=== PATIENT | female | born 1970 | race Two or more races ===

== ENCOUNTER 2020-04-02 14:00 | Outpatient (REF) | payer MEDICAID, SELFPAY ==
--- NOTE | ~2020-04-02 | MM_ITS ---
EXAMINATION: MM SCREENING DIGITAL BREAST TOMOSYNTHESIS, BILATERAL CLINICAL INFORMATION: Screening. Asymptomatic. Prior history benign left breast biopsy 2014 (sclerotic fibroadenoma). The lifetime risk of breast cancer based on the Tyrer-Cuzick Model is 14%. COMPARISON: Mammography: 02/04/2015 TECHNIQUE: Digital breast tomosynthesis is performed in both the craniocaudal and mediolateral oblique views along with computer-aided detection (CAD). Synthesized 2D images are generated from the tomosynthesis. Additional bilateral MLO views are provided. FINDINGS: There are scattered areas of fibroglandular density (ACR BI-RADS breast composition Category b). There is biopsy clip marker left breast mid upper outer quadrant with adjacent benign coarse calcification, coalescing since prior imaging 2014. Some scattered punctate benign round calcifications are present in both breasts. There is no architectural abnormality. The axilla and skin contours are unremarkable. The left breast has a 0.6 cm circumscribed nodule anterior upper outer quadrant better appreciated on tomography and not clearly appreciated on prior exam. The right breast has subtle smooth nodularity upper outer quadrant 0.8 x 1.0 cm and central inner right breast 0.9 x 1.1 cm. Again, findings are better appreciated on current study with tomography. Patient will be recalled for additional targeted bilateral breast ultrasound to fully characterize. MM/MM tomosynthesis screening BI IMPRESSION: 1. Left: Subcentimeter smooth nodule anterior upper outer quadrant of uncertain chronicity. 2. Right: Smooth nodularity upper outer quadrant and central inner breast of uncertain chronicity. ASSESSMENT: BI-RADS 0: Incomplete - Need Additional Imaging Evaluation RECOMMENDATION: 1. Bilateral targeted breast ultrasound. 2. Radiology department staff will contact the patient for additional imaging. This patient's information was entered into a reminder system with a target due date for their next mammogram.
== END 2020-04-02 14:01 | disposition home or self-care (01) ==
LOC: HO.MAMMO 14:00
PROVIDERS: PCP General Practice; Visit Provider General Practice
DX: Z12.31 Encounter for screening mammogram for malignant neoplasm of breast (principal)
CPT/HCPCS: 77063; 77067

== ENCOUNTER 2020-04-06 12:41 | Outpatient (REF) | payer MEDICAID, SELFPAY ==
--- NOTE | ~2020-04-06 | US_ITS ---
EXAMINATION: US DIAGNOSTIC ULTRASOUND BREAST, RIGHT US DIAGNOSTIC ULTRASOUND BREAST, LEFT CLINICAL INFORMATION: Recall from screening for 7 cm circumscribed nodule anterior upper outer left breast and smooth nodularity upper outer right breast and central inner right breast. Prior history benign left biopsy 2014 (sclerotic fibroadenoma). TC score 14%. COMPARISON: Mammography 04/02/2020, 03/19/2014, 07/05/2011. TECHNIQUE: Ultrasound left breast is targeted to the area of interest, anterior 1:00 through 5:00 position. Ultrasound right breast is targeted to the 2:00 through 6:00 position and 8:00 to 12:00 position. Grayscale imaging and color Doppler are performed without and with harmonics. FINDINGS: Right: There is an oval mass 9:00 to 10:00 position 10 cm from nipple with smooth margins, hypoechoic, and measuring 0.9 x 0.6 cm. There is no increased or decreased through transmission of sound or associated color flow. This corresponds to finding on recent mammography. The finding is not seen with certainty on prior 2-D exams. It may have been obscured by overlying fibroglandular density and chronicity is unclear. Suspected fibroadenoma. Ultrasound-guided core biopsy is recommended. The nodule central inner right breast noted on mammography is not identified with ultrasound. However, the finding appears chronic and similar nodularity noted in this area on prior mammography 2014 and 2011 consistent with a benign entity. Left: There is incidental cyst 3:00 position measuring 0.7 x 0.4 cm, corresponding to finding on recent mammography. This is anechoic and shows increased through-transmission of sound and no associated color flow. There is no solid mass or architectural abnormality. Results are discussed with the patient at time of visit. US/US breast RT limited IMPRESSION: 1. Right: Oval mass 9:30 o'clock position 10 cm from nipple measuring 0.9 x 0.6 cm, possibly fibroadenoma. Finding not seen with certainty on prior exams. Recommend ultrasound-guided core biopsy. 2. Right: Although the nodularity central inner right breast is not found by ultrasound, the finding is chronic and similar to prior CC views 2014 and 2011 consistent with a benign entity. 3. Left: Small cyst outer left breast corresponding to finding on mammography. ASSESSMENT: BI-RADS 4: Suspicious (subcategory 4A: Low suspicion for malignancy) RECOMMENDATION: Ultrasound-guided core biopsy nodule upper outer right breast. This patient's information was entered into a reminder system with a target due date for their next mammogram.
== END 2020-04-06 12:42 | disposition home or self-care (01) ==
LOC: HO.MAMMO 12:41
PROVIDERS: Visit Provider General Practice
DX: N63.21 Unspecified lump in the left breast, upper outer quadrant (principal); N63.11 Unspecified lump in the right breast, upper outer quadrant
CPT/HCPCS: 76642

== ENCOUNTER → 2020-04-14 13:32 | Outpatient (BNVA) | payer MEDICAID, SELFPAY | PROVIDERS: PCP General Practice; Visit Provider Surgery | DX: R92.8 Other abnormal and inconclusive findings on diagnostic imaging of breast (principal) | CPT/HCPCS: 99202 ==

== ENCOUNTER 2020-04-19 08:06 | Outpatient (REF) | payer MEDICAID, SELFPAY ==
--- NOTE | ~2020-04-19 | MM_ITS ---
EXAMINATION: ULTRASOUND GUIDED CORE BIOPSY BREAST, RIGHT POST PROCEDURE DIGITAL MAMMOGRAM, RIGHT CLINICAL INFORMATION: Oval mass upper outer right breast possibly fibroadenoma. COMPARISON: Mammography 04/02/2020, targeted ultrasound 04/06/2020. FINDINGS: Proper informed consent is obtained from the patient after discussion of the procedure, potential risks and complications, and alternatives. Patient was given an opportunity for questions. The patient appeared to understand. The patient consented to the procedure and signed the consent form. GUIDANCE: Ultrasound-guided; aseptic technique. LESION: Macrolobulated nodule 10:00 position 10 cm from nipple 0.9 cm. APPROACH: Lateral medial. ANESTHESIA: 16 mL 1% lidocaine. DERMATOTOMY: Single skin renata dermatotomy performed. NEEDLE: 14-gauge Achieve core biopsy device with 13.5-gauge co-axial guide needle. CORES: 5. CLIP: HydroMARK; shape: open coil. POST PROCEDURE UNILATERAL DIGITAL MAMMOGRAM: The post biopsy mammogram is performed in separate room using separate digital mammography equipment from the biopsy procedure. CC and ML views are obtained. There are scattered areas of fibroglandular density (breast composition category: b). The clip marker is in position and corresponds to the vicinity of the nodule noted on prior mammography. No gross hematoma. The patient tolerated the procedure well. No immediate complications. Home instructions reviewed with the patient. Final pathology results are pending. MM/MM diagnostic mammo unilat RT IMPRESSION: 1. Status post ultrasound-guided core biopsy right breast. 2. Clip placed: HydroMARK; shape: open coil. 3. Pathology pending. An addendum report will be issued.
== END 2020-04-19 08:07 | disposition home or self-care (01) ==
LOC: HO.MAMMO 08:06
PROVIDERS: Visit Provider Surgery
DX: R92.8 Other abnormal and inconclusive findings on diagnostic imaging of breast (principal)
CPT/HCPCS: 19083; 77065; 88305; A4648

== ENCOUNTER → 2020-04-22 10:00 | Outpatient (BNVA) | payer MEDICAID, SELFPAY | PROVIDERS: PCP General Practice; Visit Provider Surgery | DX: R92.8 Other abnormal and inconclusive findings on diagnostic imaging of breast (principal) | CPT/HCPCS: 99212 ==

== ENCOUNTER 2020-11-02 12:30 | Outpatient (REF) | payer MEDICAID, SELFPAY ==
[2020-11-03 13:58] LABS: H Pylori Breath Test Negative (Negative)
== END 2020-11-02 12:31 | disposition home or self-care (01) ==
LOC: CF 12:30
PROVIDERS: Referring Provider General Practice; Visit Provider Physician Assistant
DX: E66.01 Morbid (severe) obesity due to excess calories (principal); Z68.41 Body mass index [BMI] 40.0-44.9, adult; I10 Essential (primary) hypertension; Z11.0 Encounter for screening for intestinal infectious diseases
CPT/HCPCS: 36415; 83013; 99202; 99211

== ENCOUNTER → 2020-11-29 08:03 | Outpatient (BNVA) | payer MEDICAID, SELFPAY | PROVIDERS: PCP General Practice; Visit Provider Dietitian, Registered ==

== ENCOUNTER → 2020-12-09 08:09 | Outpatient (BNVA) | payer MEDICAID, SELFPAY | PROVIDERS: PCP General Practice; Visit Provider Surgery ==

== ENCOUNTER → 2020-12-13 10:51 | Outpatient (BNVA) | payer MEDICAID, SELFPAY | PROVIDERS: PCP General Practice; Referring Provider Surgery; Visit Provider Dietitian, Registered | DX: E66.01 Morbid (severe) obesity due to excess calories (principal); Z68.41 Body mass index [BMI] 40.0-44.9, adult | CPT/HCPCS: 97802 ==

== ENCOUNTER → 2020-12-30 08:08 | Outpatient (BNVA) | payer MEDICAID, SELFPAY | PROVIDERS: PCP General Practice; Visit Provider Surgery ==

== ENCOUNTER → 2021-01-06 08:08 | Outpatient (BNVA) | payer MEDICAID, SELFPAY | PROVIDERS: PCP General Practice; Visit Provider Surgery ==

== ENCOUNTER → 2021-01-17 08:12 | Outpatient (BNVA) | payer MEDICAID, SELFPAY | PROVIDERS: PCP General Practice; Referring Provider Surgery; Visit Provider Dietitian, Registered ==

== ENCOUNTER 2021-04-04 10:55 | Outpatient (REF) | payer MEDICAID, SELFPAY ==
--- NOTE | ~2021-04-04 | MM_ITS ---
EXAMINATION: MM SCREENING DIGITAL BREAST TOMOSYNTHESIS, BILATERAL CLINICAL INFORMATION: Screening. Asymptomatic. Benign right ultrasound guided biopsy 04/19/2020 (fibroadenoma). The lifetime risk of breast cancer based on the Tyrer-Cuzick Model is 10%. COMPARISON: Mammography: 04/19/2020, 04/02/2020, 02/04/2015 TECHNIQUE: Digital breast tomosynthesis is performed in both the craniocaudal and mediolateral oblique views along with computer-aided detection (CAD). Synthesized 2D images are generated from the tomosynthesis. Additional left MLO view is provided. FINDINGS: There are scattered areas of fibroglandular density (ACR BI-RADS breast composition Category b). Parenchymal pattern is similar to prior study. There is no interval mass or architectural abnormality. Scattered fibronodular densities are stable. There is biopsy clip marker adjacent to coarse calcifications again seen mid upper outer left breast and biopsy clip marker upper outer right breast. Some scattered punctate and round and rim calcifications are again present. The axilla and skin contours are unremarkable. No significant changes. MM/MM tomosynthesis screening BI IMPRESSION: No significant changes from prior exam. ASSESSMENT: BI-RADS 2: Benign RECOMMENDATION: Routine annual mammography screening. This patient's information was entered into a reminder system with a target due date for their next mammogram.
== END 2021-04-04 10:56 | disposition home or self-care (01) ==
LOC: HO.MAMMO 10:55
PROVIDERS: PCP General Practice; Visit Provider General Practice
DX: Z12.31 Encounter for screening mammogram for malignant neoplasm of breast (principal)
CPT/HCPCS: 77063; 77067

== ENCOUNTER 2021-08-07 13:55 | Emergency (ER) | payer MEDICAID, SELFPAY ==
--- NOTE | 2021-08-07 | ECG_ITS ---
Test Reason : chest pain/ swollen legs Blood Pressure : / mmHG Vent. Rate : 071 BPM Atrial Rate : 071 BPM P-R Int : 162 ms QRS Dur : 086 ms QT Int : 382 ms P-R-T Axes : 002 -07 012 degrees QTc Int : 415 ms Normal sinus rhythm Normal ECG When compared with ECG of 19-JUL-2019 19:27, No significant change was found Referred By: Generic ED Physician Electronically Signed By:EYAL RIVERO MD
--- NOTE | ~2021-08-07 | XR_ITS ---
EXAMINATION: XR CHEST CLINICAL INFORMATION: Chest pain, swollen legs. COMPARISON: 07/19/2019 chest radiograph. TECHNIQUE: 2 views of the chest were obtained. FINDINGS: No significant abnormality is noted involving the heart, lungs, mediastinum, bony thorax or soft tissues. XR/XR chest 2V IMPRESSION: No acute cardiopulmonary process.
[2021-08-07 14:39] VITALS: BP 145/86; PULSE 73; RESP 20; TEMP 36.7; O2SAT 98; BMI 44.2
[2021-08-07 15:01] LABS: MANUAL DIFF FLAG NO
[2021-08-07 15:04] LABS: Basophils Percent Auto 0.5 % (0-2); Eosinophils Absolute Auto 0.2 X10*3/uL (0.0-0.4); Hematocrit 36.9 % (37.0-47.0); Hemoglobin 12.1 g/dl (12.0-16.0); Imm Gran Abs Auto 0.01 X10*3/uL (0.00-0.03); Imm Gran Pct Auto 0.2 % (0.0-0.4); Lymphocytes Percent Auto 29.5 % (20-40); Mean Corpuscular HGB Conc 32.8 g/dl (31.0-35.0); Mean Corpuscular Hemoglobin 27.3 pg (27.0-33.0); Mean Corpuscular Volume 83.1 fL (80.0-98.0); Mean Platelet Volume 10.7 fL (9.4-12.3); Monocytes Absolute Auto 0.6 X10*3/uL (0.1-1.2); Monocytes Percent Auto 8.9 % (2-11); Neutrophils Absolute Auto 3.9 x10*3/uL (2.0-8.3); Neutrophils Percent Auto 57.9 % (45-73); Platelet Count 164 X10*3/uL (160-400); Red Blood Count 4.44 X10*6/uL (4.20-5.50); Red Cell Distribution Width 13.4 % (11.0-16.0); White Blood Count 6.7 X10*3/uL (4.8-10.8)
[2021-08-07 15:16] LABS: Anion Gap 10 (12-20); Blood Urea Nitrogen 10 mg/dL (9-16); Calcium 8.2 mg/dL (8.4-10.2); Carbon Dioxide 28 mmol/L (22-29); Chloride 105 mmol/L (96-108); Creatinine Clr Calc Pharmacy 127.2; Estimated Glomerular Filt Rate > 60; Glucose Random 105 mg/dL (60-115); Potassium 3.7 mmol/L (3.3-5.1); Sodium 139 mmol/L (135-145)
[2021-08-07 15:21] LABS: Troponin-I High Sensitivity < 3.5 ng/L (<3.5-17.0)
--- NOTE | 2021-08-07 16:05 | ED_ITS ---
HPI - Chest Pain General Chief Complaint: Chest Pain Stated Complaint: both ankles rash pain Time Seen by Provider: 08/07/21 14:54 Source: patient Mode of arrival: ambulatory Limitations: no limitations History of Present Illness HPI narrative: 51-year-old female with a past medical history of morbid obesity, hyp ertension, generalized anxiety disorder, and major depression presents with bilateral feet and ankle swelling for the last 2 weeks, a rash on her lower medial thinned shins that started yesterday, chest pressure that is intermittent that started 3 days ago. Patient states that her legs have been swollen over last 2 weeks, the rash feels burning and a little itchy. She has not had any recent changes to her medication. States her chest pressure comes and goes, it is in her central chest, does not radiate to her arm or her neck, she is not nauseous. Does endorse feeling sweaty. Never seen Cardiology. States that she becomes more short of breath when she is walking. No recent increase of salt in her diet. No abdominal pain, nausea, vomiting, diarrhea, no urinary tract symptoms, no vaginal discharge or pelvic pain, no fever, no cough, no upper respiratory symptoms Related Data Home Medications Medication Instructions Recorded Confirmed hydrochlorothiazide 25 mg tablet 25 mg PO DAILY 04/14/20 01/06/21 losartan 100 mg tablet 100 mg PO DAILY 04/14/20 01/06/21 hydrochlorothiazide 12.5 mg capsule 12.5 mg PO DAILY 09/23/20 01/06/21 Previous Rx's Medication Instructions Recorded compr.stocking,thigh,short,lrg #12 ea 08/07/21 Allergies Allergy/AdvReac Type Severity Reaction Status Date / Time aspirin [ASPIRIN] Allergy Intermediate SWELLING, Verified 01/06/21 14:27 face swells Penicillins [PENICILLINS] Allergy Mild BLISTERS Verified 01/06/21 14:27 penicillin V Allergy Unknown blisters Verified 01/06/21 14:27 Review of Systems Constitutional: Constitutional: Denies body ache(s), Denies chills, Denies fatigue, Denies fever(s), Denies headache(s), Denies malaise and Denies weakness Eyes: Eyes: Denies diplopia ENT: Denies vertigo, Denies dizziness, Denies otalgia, Denies headache(s), Denies mouth pain, Denies post nasal drip, Denies sinus pain, Denies sinus pressure, Denies sore throat and Denies throat swelling Cardiovascular: Cardiovascular: Reports chest pain, Denies syncope, Reports pedal edema, Reports leg edema, Denies lightheadedness, Denies Loss of Consciousness, Denies radiating jaw, neck or arm pain, Denies palpitations, Denies dyspnea and Reports dyspnea on exertion Respiratory: Respiratory: Denies chest congestion, Denies cough, Denies dyspnea and Reports dyspnea on exertion Gastrointestinal: Gastrointestinal: Denies abdominal pain, Denies hematochezia, Denies constipation, Denies diarrhea, Denies nausea and Denies vomiting Musculoskeletal: Musculoskeletal: Reports no additional musculoskeletal compla ints Integumentary/Breasts: Skin/Breast: Reports rash Neurologic: Denies confusion, Denies vertigo, Denies dizziness, Denies syncope, Denies headache(s) and Denies weakness Psychiatric: Psychiatric: Denies anxiety, Denies confusion and Denies depression Endocrine: Endocrine: Denies fatigue and Denies palpitations Allergic/Immunologic: Allergic/Immunologic: Denies throat swelling [facility] Past Medical History Medical History (Updated 08/07/21 @ 18:07 by KELLY Vences) Hypertension Surgical History History of tubal ligation History of wisdom tooth extraction Family History Family History (Updated 09/23/20 @ 11:12 by Linsey Miramontes) Brother History of prostate cancer Paternal Aunt History of lung cancer Paternal Aunt History of brain cancer Paternal Aunt History of ovarian cancer Paternal Aunt History of lung cancer Paternal Grandmother History of bone cancer Mother Hypertension Emphysema/COPD Father Diabetes Brother No problems noted. Brother No problems noted. Sister No problems noted. Son No problems noted. Son No problems noted. Son No problems noted. Social History Social History (Reviewed 11/02/20 @ 12:48 by Chinedu Miramontes [facility]) Alcohol intake: current Alcohol intake frequency: holidays/special occasions only Patient Tobacco Use Status: Never used Tobacco Advance Directives: No Advance Directives Information Provided: No Physical Exam Vital Signs: Vital Signs: Last Vital Signs Temp 98.0 F 08/07/21 14:39 Pulse 73 08/07/21 14:39 Resp 20 08/07/21 14:39 BP 145/86 H 08/07/21 14:39 Pulse Ox 98 08/07/21 14:39 O2 Del Method 08/07/21 14:39 BMI result Body Mass Index 44.2 Const: General: no acute distress, alert and awake; No confusion Nutritional Appearance: obese morbidly obese Orientation/consciousness: pa tient oriented x3 and No confusion Limitations: no limitations HEENT: Head: Yes normal to inspection, Yes normocephalic and Yes atraumatic Ears: hearing grossly normal bilaterally, external ears normal, TM's normal bilaterally and EAC's normal General nose exam: Normal external nose present Face and sinus: Yes normal facial exam and Yes sinuses nontender Mouth: Normal oral and palatal mucosa present Throat: Yes posterior oropharynx normal Eyes: Conjunctivae: conjunctivae normal Pupils: Equal, round and reactive pupils present EOM: EOMs intact bilaterally Neck: Neck: Yes full ROM, Yes no lymphadenopathy and Yes supple Resp: Effort & Inspection: normal respiratory effort and able to speak in complete sentences Auscultation: clear to auscultation bilaterally, no crackles, no rales, no rhonchi and no wheezes Cardio: Rate: regular rate Rhythm: regular rhythm Heart sounds: S1 normal heart sound present and S2 normal heart sound present GI: Inspection: Yes normal to inspection Palpation (GI): Soft to palpation, nontender, no guarding and not rigid Percussion: Yes normal to percussion Auscultation: normal bowel sounds Skin: Rashes: rashes noted ( bilateral medial shins) Neuro: General: patient oriented x3 and No confusion Cranial nerves: Yes Equal, round and reactive pupils present Extrem: Right lower extremity: full ROM, normal capillary refill and edema Details: pitting and 2+ Left lower extremity: full ROM, normal capillary refill and edema Details: pitting and 2+ Psych: Appearance: grossly normal Affect: normal affect Attitude: cooperative Thought process: Normal thought process present Course Course Course Narrative: 51-year-old female with past medical history of morbid obesity, hypertension, anxiety and depression presents with 3 days of intermittent chest pressure, dyspnea on exertion, and 2 weeks of bilateral lower extremity swelling. Two days ago patient had a red rash appear on her bilateral lower calves. On exam, patient has stable vitals, lungs clear to auscultation, patient is +[address] up her calves. Her rash appears to be hemosiderin in nature, it is non blanchable patient has bilateral lower extremity pulses, calves are not red, warm, or tender Dr Roberts examined patient with me, and did not think this is a vasculitis; he thought most likely venous stasis with hemosiderin. patient had negative labs including initial negative troponin, EKG shows no acute ischemia, chest x-ray shows no pleural effusions or cardiomegaly, BNP is only 35, urine shows she is not spilling protein, shows hematuria. Reevaluation(s) Reevaluation #1: On re-examination, patient's chest pain is completely resolved. Awaiting 3 hour troponin and COVID test Signed patient out to KELLY Sanabria, pending results FINDINGS: No significant abnormality is noted involving the heart, lungs, mediastinum, bony thorax or soft tissues. XR/XR chest 2V IMPRESSION: No acute cardiopulmonary process. MDM - Chest Pain Lab Data Result diagrams: 08/07/21 14:57 08/07/21 14:57 Labs: Lab Results 08/07/21 08/07/21 08/07/21 Range/Units 14:57 14:57 14:57 WBC 6.7 (4.8-10.8) X10*3/uL RBC 4.44 (4.20-5.50) X10*6/uL Hgb 12.1 (12.0-16.0) g/dl Hct 36.9 L (37.0-47.0) % MCV 83.1 (80.0-98.0) fL MCH 27.3 (27.0-33.0) pg MCHC 32.8 (31.0-35.0) g/dl RDW 13.4 (11.0-16.0) % Plt Count 164 (160-400) X10*3/uL MPV 10.7 (9.4-12.3) fL Immature Gran % (Auto) 0.2 (0.0-0.4) % Neut % (Auto) 57.9 (45-73) % Lymph % (Auto) 29.5 (20-40) % [place] % (Auto) 8.9 (2-11) % Eos % (Auto) 3.0 (0-4) % Baso % (Auto) 0.5 (0-2) % Lymph # (Auto) 2.0 (1.2-4.9) X10*3/uL [place] # (Auto) 0.6 (0.1-1.2) X10*3/uL Eos # (Auto) 0.2 (0.0-0.4) X10*3/uL Baso # (Auto) 0.0 (0.0-0.2) X10*3/uL Abs Immat Gran (auto) 0.01 (0.00-0.03) X10*3/uL Absolute Neuts (auto) 3.9 (2.0-8.3) x10*3/uL Absolute Nucleated RBC 0.000 (0.0-0.012) X10*3/uL Nucleated RBC % (auto) 0.0 (0.0-0.2) /100WBC Sodium 139 (135-145) mmol/L Potassium 3.7 (3.3-5.1) mmol/L Chloride 105 (96-108) mmol/L Carbon Dioxide 28 (22-29) mmol/L Anion Gap 10 L (12-20) BUN 10 (9-16) mg/dL Creatinine 0.65 (0.5-1.4) mg/dL Estim Creat Clear Calc 127.2 Estimated GFR > 60 Random Glucose 105 (60-115) mg/dL Calcium 8.2 L (8.4-10.2) mg/dL Troponin I High Sens < 3.5 (<3.5-17.0) ng/L B-Natriuretic Peptide 35 (<100) pg/mL Urine Color Urine Appearance Urine pH (5.0-8.0) Ur Specific [place] (1.005-1.025) Urine Protein (NEG-TRACE) MG/DL Urine Glucose (UA) (NEG) MG/DL Urine Ketones (NEG) MG/DL Urine Blood (NEG) Urine Nitrite (NEG) Ur Leukocyte Esterase (NEG) Urine RBC (0) /HPF Urine WBC (0-4) /HPF Ur Squamous Epith Cells /LPF Urine Bacteria /LPF 08/07/21 08/07/21 Range/Units 16:38 17:39 WBC (4.8-10.8) X10*3/uL RBC (4.20-5.50) X10*6/uL Hgb (12.0-16.0) g/dl Hct (37.0-47.0) % MCV (80.0-98.0) fL MCH (27.0-33.0) pg MCHC (31.0-35.0) g/dl RDW (11.0-16.0) % Plt Count (160-400) X10*3/uL MPV (9.4-12.3) fL Immature Gran % (Auto) (0.0-0.4) % Neut % (Auto) (45-73) % Lymph % (Auto) (20-40) % [place] % (Auto) (2-11) % Eos % (Auto) (0-4) % Baso % (Auto) (0-2) % Lymph # (Auto) (1.2-4.9) X10*3/uL [place] # (Auto) (0.1-1.2) X10*3/uL Eos # (Auto) (0.0-0.4) X10*3/uL Baso # (Auto) (0.0-0.2) X10*3/uL Abs Immat Gran (auto) (0.00-0.03) X10*3/uL Absolute Neuts (auto) (2.0-8.3) x10*3/uL Absolute Nucleated RBC (0.0-0.012) X10*3/uL Nucleated RBC % (auto) (0.0-0.2) /100WBC Sodium (135-145) mmol/L Potassium (3.3-5.1) mmol/L Chloride (96-108) mmol/L Carbon Dioxide (22-29) mmol/L Anion Gap (12-20) BUN (9-16) mg/dL Creatinine (0.5-1.4) mg/dL Estim Creat Clear Calc Estimated GFR Random Glucose (60-115) mg/dL Calcium (8.4-10.2) mg/dL Troponin I High Sens < 3.5 (<3.5-17.0) ng/L B-Natriuretic Peptide (<100) pg/mL Urine Color YELLOW Urine Appearance CLEAR Urine pH 6.5 (5.0-8.0) Ur Specific [place] 1.015 (1.005-1.025) Urine Protein NEG (NEG-TRACE) MG/DL Urine Glucose (UA) NEG (NEG) MG/DL Urine Ketones NEG (NEG) MG/DL Urine Blood 3+ H (NEG) Urine Nitrite NEG (NEG) Ur Leukocyte Esterase NEG (NEG) Urine RBC 1-4 (0) /HPF Urine WBC 1-4 (0-4) /HPF Ur Squamous Epith Cells 1+ /LPF Urine Bacteria 1+ /LPF ECG Data ECG #1: Interpretation: Sinus at a rate of 71, TX interval 162, QRS 86, QTC 415, left-sided axis, no ST depressions or elevations, no T-wave abnormalities Discharge Plan Discharge Clinical Impression: Venous stasis Patient Disposition: Home, Self-Care Instructions: Venous Insufficiency (DC) Additional Instructions: please call your primary care provider for follow-up appointment. Please talk to them if they want to increase her dose of hydrochlorothiazide. Please wear the compression stockings during the day, was will help move the fluid back up to your heart so it could be recirculated Please return to emergency room if you have any new or concerning symptoms such as chest pain, shortness of breath, abdominal pain Prescriptions: New (DME) compr.stocking,thigh,short,lrg Misc See Rx Instructions .Route Qty: 12 0RF Rx Instructions: As directed No Action hydrochlorothiazide 12.5 mg capsule 12.5 mg PO DAILY losartan 100 mg tablet 100 mg PO DAILY hydrochlorothiazide 25 mg tablet 25 mg PO DAILY
[2021-08-07 16:50] LABS: Appearance Urine CLEAR; Color Urine YELLOW; Glucose Urine UA NEG (NEG); Leukocyte Esterase Urine NEG (NEG); Nitrite Urine NEG (NEG); PH 6.5 (5.0-8.0); Specific Gravity - Urine 1.015 (1.005-1.025); UACC Culture Trigger NO; Urine Blood 3+ (NEG); Urine Ketones NEG (NEG); Urine Protein NEG (NEG-TRACE)
[2021-08-07 16:59] LABS: Bacteria Urine 1+ /LPF; Squamous Epithelial Cell Urine 1+ /LPF
[2021-08-07 17:43] LABS: B Type Natriuretic Peptide 35 pg/mL (<100)
[2021-08-07 18:06] LABS: Troponin-I High Sensitivity < 3.5 ng/L (<3.5-17.0)
[2021-08-07 18:12] LABS: COVID-19 Test Negative (Negative)
[2021-08-07 18:32] VITALS: BP 147/88; PULSE 82; RESP 18; O2SAT 99
== END 2021-08-07 18:34 | disposition home or self-care (01) ==
PROVIDERS: Physician Assistant; Emergency Provider Emergency Medicine; PCP General Practice
DX: I87.8 Other specified disorders of veins (principal); R07.89 Other chest pain; R60.0 Localized edema; R21 Rash and other nonspecific skin eruption; R06.02 Shortness of breath; Z79.899 Other long term (current) drug therapy; Z20.822 Contact with and (suspected) exposure to COVID-19
CPT/HCPCS: 36415; 71046; 80048; 81001; 83880; 84484; 85025; 87635; 93005; 99284

== ENCOUNTER → 2021-08-23 15:59 | Outpatient (BNVA) | payer MEDICAID, SELFPAY | PROVIDERS: PCP General Practice; Visit Provider Nurse Practitioner Family | DX: Z12.11 Encounter for screening for malignant neoplasm of colon (principal) | CPT/HCPCS: 99202; 99212 ==

== ENCOUNTER 2022-06-11 15:34 | Outpatient (REF) | payer MEDICAID, SELFPAY ==
--- NOTE | ~2022-06-11 | MM_ITS ---
EXAMINATION: MM SCREENING DIGITAL BREAST TOMOSYNTHESIS, BILATERAL CLINICAL INFORMATION: Screening. Asymptomatic. The lifetime risk of breast cancer based on the Tyrer-Cuzick Model is 10.7%. COMPARISON: Mammography: 04/04/2021 and studies dating back to 01/30/2010 TECHNIQUE: Digital breast tomosynthesis is performed in both the craniocaudal and mediolateral oblique views along with computer-aided detection (CAD). Synthesized 2D images are generated from the tomosynthesis. FINDINGS: The breasts are heterogeneously dense, which may obscure small masses (ACR BI-RADS breast composition Category c). There are no new significant masses, abnormal calcifications, or other abnormalities. Asymmetric density on left mediolateral oblique view is seen to represent superimposition of fibroglandular tissue similar to previous studies dating back to 01/30/2010. MM/MM tomosynthesis screening BI IMPRESSION: No significant change, ASSESSMENT: BI-RADS 1: Negative RECOMMENDATION: Routine annual mammography screening. This patient's information was entered into a reminder system with a target due date for their next mammogram.
== END 2022-06-11 15:35 | disposition home or self-care (01) ==
LOC: HO.MAMMO 15:34
PROVIDERS: PCP General Practice; Visit Provider General Practice
DX: Z12.31 Encounter for screening mammogram for malignant neoplasm of breast (principal)
CPT/HCPCS: 77063; 77067

== ENCOUNTER 2022-07-06 15:39 | Outpatient (REF) | payer MEDICAID, SELFPAY ==
--- NOTE | ~2022-07-06 | XR_ITS ---
EXAMINATION: XR FOOT, RIGHT XR FOOT, LEFT CLINICAL INFORMATION: Rt foot pain x 4 months. No injury, pain mostly in heel. Pain in the lateral aspect of the left foot. COMPARISON: None available. TECHNIQUE: AP, lateral, and oblique views of each foot. FINDINGS: RIGHT FOOT: Moderate sized enthesopathic spurs are present at the Achilles tendon insertion and plantar fascial origin on the calcaneus. No fracture or malalignment. Bone mineralization is normal. Mild soft tissue swelling at the Achilles tendon insertion on the calcaneus. Small os peroneum. Soft tissues otherwise unremarkable. LEFT FOOT: Moderate sized enthesopathic spurs are present at the Achilles tendon insertion and plantar fascial origin on the calcaneus. No fracture or malalignment. Bone mineralization is normal. Small os peroneum. Soft tissues are unremarkable. XR/XR foot RT min 3V IMPRESSION: Moderate-sized enthesopathic spurs at the Achilles tendon insertion and plantar fascial origin on both calcanei. Mild soft tissue swelling at the right Achilles insertion could be due to tendinosis or peritendinitis. No acute osseous findings.
--- NOTE | ~2022-07-06 | XR_ITS ---
EXAMINATION: XR FOOT, RIGHT XR FOOT, LEFT CLINICAL INFORMATION: Rt foot pain x 4 months. No injury, pain mostly in heel. Pain in the lateral aspect of the left foot. COMPARISON: None available. TECHNIQUE: AP, lateral, and oblique views of each foot. FINDINGS: RIGHT FOOT: Moderate sized enthesopathic spurs are present at the Achilles tendon insertion and plantar fascial origin on the calcaneus. No fracture or malalignment. Bone mineralization is normal. Mild soft tissue swelling at the Achilles tendon insertion on the calcaneus. Small os peroneum. Soft tissues otherwise unremarkable. LEFT FOOT: Moderate sized enthesopathic spurs are present at the Achilles tendon insertion and plantar fascial origin on the calcaneus. No fracture or malalignment. Bone mineralization is normal. Small os peroneum. Soft tissues are unremarkable. XR/XR foot LT min 3V IMPRESSION: Moderate-sized enthesopathic spurs at the Achilles tendon insertion and plantar fascial origin on both calcanei. Mild soft tissue swelling at the right Achilles insertion could be due to tendinosis or peritendinitis. No acute osseous findings.
== END 2022-07-06 15:40 | disposition home or self-care (01) ==
LOC: HO.HHCX 15:39
PROVIDERS: Visit Provider General Practice
DX: M79.671 Pain in right foot (principal); M79.672 Pain in left foot
CPT/HCPCS: 73630

== ENCOUNTER 2022-07-19 07:36 | Day surgery (SDC) | payer MEDICAID, SELFPAY ==
--- NOTE | 2022-07-18 09:39 | HO.ANESPROP2 ---
Documented by User: Carmencita Pederson NP 07/18/22 09:39 HPI - Anesthesia Eval Consult details Narrative: 52yo F for Colonoscopy PMFSH Active Problems Active Problems: All Active Problems (Updated 07/13/22 @ 14:04 by Zulma Pryor, RN) Abnormal mammogram of right breast (Acute) Morbid obesity (Acute) HTN (hypertension), benign (Acute) HILDA (generalized anxiety disorder) (Acute) MDD (major depressive disorder), recurrent episode, mild (Acute) Venous stasis (Acute) Past Medical History Medical History (Updated 07/13/22 @ 14:04 by Zulma Pryor, RN) Hypertension Obesity Family History Family History Brother History of prostate cancer Paternal Aunt History of lung cancer Paternal Aunt History of brain cancer Paternal Aunt History of ovarian cancer Paternal Aunt History of lung cancer Paternal Grandmother History of bone cancer Mother Hypertension Emphysema/COPD Father Diabetes Brother No problems noted. Brother No problems noted. Sister No problems noted. Son No problems noted. Son No problems noted. Son No problems noted. Surgical History Surgical History History of tubal ligation History of wisdom tooth extraction Social History Social History Alcohol intake: current Alcohol intake frequency: holidays/special occasions only Patient Tobacco Use Status: Never used Tobacco Use of substances other than those prescribed or required for medical reasons: No Are you DNR?: No Advance Directives: No Advance Directives Information Provided: Yes Recently lost weight without trying: No Nutrition Risks: No Nutritional Risk Meds Allergies Allergy/AdvReac Type Severity Reaction Status Date / Time aspirin [ASPIRIN] Allergy Intermediate SWELLING, Verified 07/13/22 14:05 face swells Penicillins [PENICILLINS] Allergy Mild BLISTERS Verified 07/13/22 14:05 penicillin V Allergy Unknown blisters Verified 07/13/22 14:05 Home Medications Medication Instructions Recorded Confirmed Last Taken Type hydrochlorothiazide 25 mg tablet 25 mg PO DAILY 04/14/20 07/13/22 Unknown History losartan 100 mg tablet 100 mg PO DAILY 04/14/20 07/19/22 07/19/22 06:30 History Exam Exam Date and Time: July 18, [id number] Assessment and Plan Assessment Anesthesia Assessment: Chart Reviewed Documented by User: Sun Petersen MD 07/19/22 08:01 [facility] Past Medical History Medical History (Updated 07/13/22 @ 14:04 by Zulma Pryor RN) Hypertension Obesity Family History Family History Brother History of prostate cancer Paternal Aunt History of lung cancer Paternal Aunt History of brain cancer Paternal Aunt History of ovarian cancer Paternal Aunt History of lung cancer Paternal Grandmother History of bone cancer Mother Hypertension Emphysema/COPD Father Diabetes Brother No problems noted. Brother No problems noted. Sister No problems noted. Son No problems noted. Son No problems noted. Son No problems noted. Family history of problems with anesthesia: No Surgical History Surgical History History of tubal ligation History of wisdom tooth extraction History of Problems with Anesthesia: No Social History Social History Alcohol intake: current Alcohol intake frequency: holidays/special occasions only Patient Tobacco Use Status: Never used Tobacco Use of substances other than those prescribed or required for medical reasons: No Are you DNR?: No Advance Directives: No Advance Directives Information Provided: Yes Recently lost weight without trying: No Nutrition Risks: No Nutritional Risk Meds Allergies Allergy/AdvReac Type Severity Reaction Status Date / Time aspirin [ASPIRIN] Allergy Intermediate SWELLING, Verified 07/13/22 14:05 face swells Penicillins [PENICILLINS] Allergy Mild BLISTERS Verified 07/13/22 14:05 penicillin V Allergy Unknown blisters Verified 07/13/22 14:05 Home Medications Medication Instructions Recorded Confirmed Last Taken Type hydrochlorothiazide 25 mg tablet 25 mg PO DAILY 04/14/20 07/13/22 Unknown History losartan 100 mg tablet 100 mg PO DAILY 04/14/20 07/19/22 07/19/22 06:30 History Exam Airway Mallampati Class: III TM Dist: >3cm Neck ROM: Full Assessment and Plan Assessment Anesthesia Assessment: Anesthesia Plan Discussed Final Anesthetic Review Family History of Problems with Anesthesia: No History of Problems with Anesthesia: No NPO: Yes ASA Class: III Final Preanesthetic Review: No Changes in Pt Med Stat, Meds/Allgs Chart Reviewed, Consent Obtained/Reviewed and Anes Risks/Benef Reviewed Patient Risk: Intermediate Procedure Risk: Low Anesthetic Plan Anesthetic Plan: MAC: Disposition: Standard PACU
[2022-07-19 07:44] VITALS: BMI 45.0
[2022-07-19 07:51] VITALS: BP 123/86; PULSE 91; RESP 16; TEMP 36.1; O2SAT 95
--- NOTE | 2022-07-19 07:59 | MHC.SHP ---
Pre-Procedural Eval Section A Date of Service: 07/19/22 Section B Chief Complaint: Screening Details of Present Illness: Medical History Hypertension Surgical History History of tubal ligation History of wisdom tooth extraction Relevant Social History: None Present Medications: see Short Stay Collaborative assessment Allergies: Allergies Allergy/AdvReac Type Severity Reaction Status Date / Time aspirin [ASPIRIN] Allergy Intermediate SWELLING, Verified 07/13/22 14:05 face swells Penicillins [PENICILLINS] Allergy Mild BLISTERS Verified 07/13/22 14:05 penicillin V Allergy Unknown blisters Verified 07/13/22 14:05 Review of Systems Review of Systems Comment: Ten point ROS negative Exam Exam Comment: Gen appear: No acute distress HEENT: no icterus Chest: No overt resp distress Abd: soft, nontender, nondistended Psych: Stable affect, answering questions appropriately Neuro: A/Ox3 noted to move all extremities spontaneously Ext: no peripheral edema Plan Diagnosis/Plan: Unchanged I have reviewed the history and physical and performed a pertinent physical examination on my patient. No changes have occurred unless specified. Time Spent With Patient Time: Total time managing care of this patient today ____ minutes.
[2022-07-19] MEDS: Lactated Ringers 1,000 ML 100 ML IVCONT (08:03)
[2022-07-19 08:37] VITALS: BP 113/70; PULSE 104; RESP 18; TEMP 37; O2SAT 94
--- NOTE | 2022-07-19 08:37 | P.OP_ITS ---
Operative Note Operative Note Date of Service: 07/19/22 Narrative: Procedure: Colonoscopy Indication: Screening Endoscopist: Emi Lorenzo MD Anesthesia Provider: Dr Sun Petersen Anesthesia type: MAC Instrument: Olympus [id number] Consent: Indication, risks vs benefits, and alternatives were discussed with the patient who gave written informed consent to proceed.EKG, pulse, pulse oximetry and blood pressure were monitored throughout the procedure. Please see anesthesia flowsheet. Procedure: The patient was brought to the procedure room and placed in the left lateral decubitus position. IV medications were administered by the anesthesia provider in attendance. A digital rectal exam was performed which was normal. The distal attachment cap was affixed to the tip of the scope and the colonoscope was then inserted through the anus and advanced through the colon to the cecum at 75 cm,and terminal ileum. Mucosa was carefully examined under high definition white light as the instrument was slowly withdrawn in a retrograde panoramic fashion. Retroflexion was performed in rectum. The procedure was not difficult. There were no immediate obvious complications. The quality of the prep was BBPS: 3+2+3 = adequate Withdrawal time 12 minutes. Limitations: No limitations. Findings: Mucosa: Normal to cecum and terminal ileum. Protruding lesions: * Medium external hemorrhoids without stigmata of recent bleeding. Impression: 1. Normal colon and terminal ileum mucosa 2. External hemorrhoids Recommendations: - Repeat colonoscopy in 10 years for CRC screening
[2022-07-19 08:52] VITALS: BP 135/82; PULSE 92; RESP 18; TEMP 36.1; O2SAT 95
== END 2022-07-19 09:11 | disposition home or self-care (01) ==
PROVIDERS: PCP General Practice; Visit Provider Internal Medicine
PROC: 0DJD8ZZ Inspection of Lower Intestinal Tract, Via Natural or Artificial Opening Endoscopic (ICD-10-PCS; CPT 45378; principal; 2022-07-19 08:30)
DX: Z12.11 Encounter for screening for malignant neoplasm of colon (principal); K64.4 Residual hemorrhoidal skin tags; I10 Essential (primary) hypertension; F33.0 Major depressive disorder, recurrent, mild; F41.1 Generalized anxiety disorder; I87.8 Other specified disorders of veins; E66.01 Morbid (severe) obesity due to excess calories; Z68.42 Body mass index [BMI] 45.0-49.9, adult; Z79.899 Other long term (current) drug therapy; Z88.0 Allergy status to penicillin; Z88.8 Allergy status to other drugs, medicaments and biological substances; Z98.51 Tubal ligation status
CPT/HCPCS: 45378

== ENCOUNTER 2023-01-09 09:48 | Outpatient (REF) | payer MEDICAID, SELFPAY ==
[2023-01-09 12:39] LABS: TSH reflex Free T4 6.03 uIU/mL (0.32-4.0)
[2023-01-09 13:19] LABS: Free T4 (Free Thyroxine) 0.87 ng/dL (0.71-1.85)
[2023-01-10 12:00] LABS: BV Int Neg Control Negative (Negative); BV Int Pos Control Positive (Positive)
== END 2023-01-09 09:49 | disposition home or self-care (01) ==
LOC: HO.HHCL 09:48
PROVIDERS: Visit Provider Advanced Practice Midwife
DX: N91.2 Amenorrhea, unspecified (principal); N89.8 Other specified noninflammatory disorders of vagina
CPT/HCPCS: 36415; 84439; 84443; 87480; 87510; 87660

== ENCOUNTER 2023-03-18 16:04 | Outpatient (REF) | payer MEDICAID, SELFPAY ==
[2023-03-19 05:16] LABS: Estimated Average Glucose 126 mg/dL
== END 2023-03-18 16:05 | disposition home or self-care (01) ==
LOC: HO.HHCL 16:04
PROVIDERS: Visit Provider General Practice
DX: I10 Essential (primary) hypertension (principal)
CPT/HCPCS: 36415; 83036

== ENCOUNTER 2023-04-23 09:58 | Outpatient (AMB) | payer MEDICAID, SELFPAY ==
[2023-04-23 10:20] VITALS: BMI 45.0
--- NOTE | 2023-04-23 10:20 | MHC.OFFVIS ---
Intake Vital Signs 04/23/23 10:20 Height 5 ft 4 in Weight 262 lb BMI 45.0 Intake Visit Reasons: FC- LT ankle fx Intake Note: Ame 53 yr old female presents today for her left ankle fx. Seen with to discuss surgery. Importance of Elevation and ice application addressed with patient, she should be elevating ankle with at least three pillows. We also discussed the reasoning fro no narcotics prior to surgery. patient understands and will be taking ibuprofen and tylenol Allergies aspirin [ASPIRIN] Allergy (Intermediate, Verified 07/13/22 14:05) SWELLING, face swells Penicillins [PENICILLINS] Allergy (Mild, Verified 07/13/22 14:05) BLISTERS penicillin V Allergy (Unknown, Verified 07/13/22 14:05) blisters HPI FC- LT ankle fx HPI Details This is a 53 yo F who tripped and fell in [place] ~5 days ago. She has a CD with her today that shows a fracture/dislocation of her left ankle. This , she tells us, was reduced in [place]. She was splinted and comes in today for follow up. [facility] Medical History (Updated 04/25/23 @ 08:59 by Braxton Bragg MD) Obesity Hypertension Surgical History History of wisdom tooth extraction History of tubal ligation Family History Brother History of prostate cancer Paternal Aunt History of lung cancer Paternal Aunt History of brain cancer Paternal Aunt History of ovarian cancer Paternal Aunt History of lung cancer Paternal Grandmother History of bone cancer Mother Hypertension Emphysema/COPD Father Diabetes Brother No problems noted. Brother No problems noted. Sister No problems noted. Son No problems noted. Son No problems noted. Son No problems noted. Social History Alcohol intake: current Alcohol intake frequency: holidays/special occasions only Patient Tobacco Use Status: Never used Tobacco Physical Exam Vital Signs: BMI result Body Mass Index 45.0 Const General: cooperative, healthy appearing, no acute distress, well developed and alert HEENT Head: Yes normal to inspection, Yes normocephalic and Yes atraumatic Mouth: moist mucous membranes Eyes General: appearance normal, both eyes and all related structures EOM: EOMs intact bilaterally Chest Other: no audible wheezing. Resp Other: No audible wheezing Effort & Inspection: normal respiratory effort Cardio Other: Radial pulse palpable with no rythmic abnormalities Back/Spine/Pelvis Cervical Spine: normal cervical lordosis Skin General skin exam: no rashes or lesions noted Neuro General: no focal motor deficits Extrem Other: sollen left ankle with anterolateral and posteromedial fracture blisters + wrinkle test SILT DP+2 Psych Appearance: grossly normal and well kempt Mental Status: mental status grossly normal Speech and movement: Normal speech and movement present Affect: normal affect Attitude: cooperative Results Reviewed Results Reviewed: Left ankle lateral and posterior malleolar fracture Assessment & Plan Assessment & Plan (1) Closed left ankle fracture: Code(s): S82.892A - Other fracture of left lower leg, initial encounter for closed fracture Plan: This is a 53 yo F with a fracture dislocation (reduced in [place])_ of her left ankle. She is too swollen at this time. I recommend elevation. We will see her in ~5-7 days and hopefully elevation will decrease swelling to allow us to intervene surgically in the next 10 days. Orders: Orders XR ankle LT min 3V 04/23/23 M25.579 - Pain in unspecified ankle and joints of unspecified foot Coding Level of Care Code New Pt Level 4 (71365) Diagnoses Closed left ankle fracture S82.892A
== END 2023-04-23 10:49 | disposition home or self-care (01) ==
LOC: HO.HOS 09:59
PROVIDERS: PCP General Practice; Visit Provider Orthopaedic Surgery
DX: S82.892A Other fracture of left lower leg, initial encounter for closed fracture (principal)
CPT/HCPCS: 99203

== ENCOUNTER 2023-04-23 09:58 | Outpatient (REF) | payer MEDICAID, SELFPAY ==
--- NOTE | ~2023-04-23 | XR_ITS ---
EXAMINATION: XR ANKLE, LEFT CLINICAL INFORMATION: Pain COMPARISON: Left foot radiographs 07/06/2022 TECHNIQUE: AP, lateral, and mortise views of the left ankle. FINDINGS: Overlying splinting material obscures fine osseus detail. Obliquely oriented mildly displaced fracture of the distal fibular diaphysis and mildly displaced posterior malleolus fracture with anterior dislocation of the distal tibia with respect to the talar dome. No definite medial malleolus fracture although as detailed above exam is limited by overlying material, and repeat radiographs could be considered. Widening of the medial clear space suggesting ligamentous injury. Small tibiotalar joint effusion. Overlying soft tissue swelling. Plantar calcaneal spurring and Achilles tendon enthesopathy. XR/XR ankle LT min 3V IMPRESSION: 1. Obliquely oriented mildly displaced fracture of the distal fibular diaphysis and mildly displaced posterior malleolus fracture with anterior dislocation of the distal tibia with respect to the talar dome. No definite medial malleolus fracture although as detailed above exam is limited by overlying material, and repeat radiographs could be considered. 2. Widening of the medial clear space suggesting ligamentous injury. 3. Small tibiotalar joint effusion. Overlying soft tissue swelling.
== END 2023-04-23 09:59 | disposition home or self-care (01) ==
LOC: HO.HOSX 09:58
PROVIDERS: PCP General Practice; Visit Provider Orthopaedic Surgery
DX: S82.892A Other fracture of left lower leg, initial encounter for closed fracture (principal); X58.XXXA Exposure to other specified factors, initial encounter; Y93.9 Activity, unspecified; Y92.9 Unspecified place or not applicable; Y99.9 Unspecified external cause status
CPT/HCPCS: 73610; 99202

== ENCOUNTER 2023-04-29 11:02 | Outpatient (AMB) | payer MEDICAID, SELFPAY ==
--- NOTE | 2023-04-29 11:18 | MHC.OFFVIS ---
Intake Intake Visit Reasons: OV - Left Ankle Fracture - Wound Check Intake Note: Ame is a 53 year old female who presents today for a wound check of her left ankle. On -- while in [place] she was getting out of the pool when she fell on the left ankle. She was seen in their ED, was reduced and placed in a non padded plaster splint. Splint taken down and dressing removed. Blisters on the medial aspect of the ankle seems to have burst while others are intact. She reports significant pain, but it has improved slightly since splint change Allergies aspirin [ASPIRIN] Allergy (Intermediate, Verified 07/13/22 14:05) SWELLING, face swells Penicillins [PENICILLINS] Allergy (Mild, Verified 07/13/22 14:05) BLISTERS penicillin V Allergy (Unknown, Verified 07/13/22 14:05) blisters HPI OV - Left Ankle Fracture - Wound Check HPI Details Ame is a 53 year old female who presents today for a wound check of her left ankle. On -- while in [place] she was getting out of the pool when she fell on the left ankle. She was seen in their ED, was reduced and placed in a non padded plaster splint. Splint taken down and dressing removed. Blisters on the medial aspect of the ankle seems to have burst while others are intact. She reports significant pain, but it has improved slightly since splint change Location Left Ankle [facility] Medical History (Updated 04/25/23 @ 08:59 by Braxton Bragg MD) Obesity Hypertension Surgical History History of wisdom tooth extraction History of tubal ligation Family History Brother History of prostate cancer Paternal Aunt History of lung cancer Paternal Aunt History of brain cancer Paternal Aunt History of ovarian cancer Paternal Aunt History of lung cancer Paternal Grandmother History of bone cancer Mother Hypertension Emphysema/COPD Father Diabetes Brother No problems noted. Brother No problems noted. Sister No problems noted. Son No problems noted. Son No problems noted. Son No problems noted. Social History Alcohol intake: current Alcohol intake frequency: holidays/special occasions only Patient Tobacco Use Status: Never used Tobacco Physical Exam Const General: cooperative, healthy appearing, no acute distress, well developed and alert HEENT Head: Yes normal to inspection, Yes normocephalic and Yes atraumatic Mouth: moist mucous membranes Eyes General: appearance normal, both eyes and all related structures EOM: EOMs intact bilaterally Chest Other: no audible wheezing. Resp Other: No audible wheezing Effort & Inspection: normal respiratory effort Back/Spine/Pelvis Cervical Spine: normal cervical lordosis Skin General skin exam: no rashes or lesions noted Neuro General: no focal motor deficits Extrem Other: Still with multiple medial and lateral fracture blisters over area to be incised. + wrinkle test Psych Appearance: grossly normal and well kempt Mental Status: mental status grossly normal Speech and movement: Normal speech and movement present Affect: normal affect Attitude: cooperative Assessment & Plan Assessment & Plan (1) Closed left ankle fracture: Code(s): S82.892A - Other fracture of left lower leg, initial encounter for closed fracture Plan: 10 days s/p left ankle fracture dislocation. Flew subsequently from [place] and now with extensive swellign and fracture blisters. Still too swollen to operate. Splinted in more neutral position. Elevate above heart. Surgery for next week (Saturday) and follow up Saturday. I recommend ORIF. I discussed the risks benefits and alternatives including but not limited to the risk of pain, infection, stiffness, need for further surgery as well as potential medical complications such as blood clots, pulmonary embolism and cardiac complications. She expressed understanding Coding Level of Care Code Est Pt Level 4 (26006) Diagnoses Closed left ankle fracture S82.892A
== END 2023-05-01 14:43 | disposition home or self-care (01) ==
PROVIDERS: PCP General Practice; Referring Provider General Practice; Visit Provider Orthopaedic Surgery
DX: S82.892A Other fracture of left lower leg, initial encounter for closed fracture (principal)
CPT/HCPCS: 99214

== ENCOUNTER → 2023-04-29 11:02 | Outpatient (BNVA) | payer MEDICAID, SELFPAY | PROVIDERS: PCP General Practice; Visit Provider Orthopaedic Surgery | DX: S82.892D Other fracture of left lower leg, subsequent encounter for closed fracture with routine healing (principal) | CPT/HCPCS: 99212 ==

== ENCOUNTER 2023-05-06 10:05 | Outpatient (AMB) | payer MEDICAID, SELFPAY ==
--- NOTE | 2023-05-06 10:11 | MHC.OFFVIS ---
Intake Vital Signs 05/06/23 10:12 Height 4 in Weight 262 lb BMI 53492.6 Intake Visit Reasons: OV- Left Ankle Fx 04/18/23 - Wound Check Intake Note: Ame is a 53 year old female who presents today for a wound check of her left ankle. While in [facility] 04/18/23 she was getting out of the pool when she fell on the left ankle. She was seen in their ED, was reduced and placed in a non padded plaster splint. Splint taken down and dressing removed. She reports that this splint was quite comfortable, but once splint was removed all of her pain has returned Allergies aspirin [ASPIRIN] Allergy (Intermediate, Verified 07/13/22 14:05) SWELLING, face swells Penicillins [PENICILLINS] Allergy (Mild, Verified 07/13/22 14:05) BLISTERS penicillin V Allergy (Unknown, Verified 07/13/22 14:05) blisters HPI OV- Left Ankle Fx 04/18/23 - Wound Check HPI Details Ame is a 53 year old female who presents today for a wound check of her left ankle. While in [place] on 04/18/23 she was getting out of the pool when she fell on the left ankle. She was seen in their ED, was reduced and placed in a non padded plaster splint. Splint taken down and dressing removed. She reports that this splint was quite comfortable, but once splint was removed all of her pain has returned [facility] Medical History Obesity Hypertension Surgical History History of wisdom tooth extraction History of tubal ligation Family History Brother History of prostate cancer Paternal Aunt History of lung cancer Paternal Aunt History of brain cancer Paternal Aunt History of ovarian cancer Paternal Aunt History of lung cancer Paternal Grandmother History of bone cancer Mother Hypertension Emphysema/COPD Father Diabetes Brother No problems noted. Brother No problems noted. Sister No problems noted. Son No problems noted. Son No problems noted. Son No problems noted. Social History Alcohol intake: current Alcohol intake frequency: holidays/special occasions only Patient Tobacco Use Status: Never used Tobacco Physical Exam Vital Signs: BMI result Body Mass Index 65157.6 Const General: cooperative, healthy appearing, no acute distress, well developed and alert HEENT Head: Yes normal to inspection, Yes normocephalic and Yes atraumatic Mouth: moist mucous membranes Eyes General: appearance normal, both eyes and all related structures EOM: EOMs intact bilaterally Chest Other: no audible wheezing. Resp Other: No audible wheezing Effort & Inspection: normal respiratory effort Cardio Other: Radial pulse palpable with no rythmic abnormalities Back/Spine/Pelvis Cervical Spine: normal cervical lordosis Skin General skin exam: no rashes or lesions noted Neuro General: no focal motor deficits Extrem Other: The swelling is improving but not gone. There are fracture blisters medially and laterally. Her forefoot is swollen. There are wrinkles at the ankle with dorsiflexion but dorsiflexion is very painful. Her calves are soft and not tender Psych Appearance: grossly normal and well kempt Mental Status: mental status grossly normal Speech and movement: Normal speech and movement present Affect: normal affect Attitude: cooperative Results Reviewed Results Reviewed: I personally reviewed relevant radiographs. 1. Obliquely oriented mildly displaced fracture of the distal fibular diaphysis and mildly displaced posterior malleolus fracture with anterior dislocation of the distal tibia with respect to the talar dome. No definite medial malleolus fracture although as detailed above exam is limited by overlying material, and repeat radiographs could be considered. 2. Widening of the medial clear space suggesting ligamentous injury. 3. Small tibiotalar joint effusion. Overlying soft tissue swelling. Assessment & Plan Assessment & Plan (1) Closed left ankle fracture: Code(s): S82.892A - Other fracture of left lower leg, initial encounter for closed fracture Plan: This is a 53-year-old woman who is nearly 3 weeks status post left ankle fracture dislocation. Her swelling has improved but is still fracture blistering are present but many of them have dried. I think the risk of surgery is certainly more elevated than it would be in someone without any skin changes but it is much improved from prior and she is nearly 3 weeks out. I recommend operative fixation of the lateral malleolar fracture. This may include syndesmosis fixation as I suspect there is a deltoid ligament injury. I discussed the risks benefits and alternatives including but not limited to the risk of pain, infection, stiffness, need for further surgery as well as potential medical complications such as blood clots, pulmonary embolism and cardiac complications. She expressed understanding and we will proceed forward accordingly. Coding Level of Care Code Est Pt Level 4 (26217) Diagnoses Closed left ankle fracture S82.892A
[2023-05-06 10:12] VITALS: BMI 11511.6
== END 2023-05-06 10:35 | disposition home or self-care (01) ==
PROVIDERS: PCP General Practice; Visit Provider Orthopaedic Surgery
DX: S82.892A Other fracture of left lower leg, initial encounter for closed fracture (principal)
CPT/HCPCS: 99214

== ENCOUNTER → 2023-05-06 10:05 | Outpatient (BNVA) | payer MEDICAID, SELFPAY | PROVIDERS: PCP General Practice; Visit Provider Orthopaedic Surgery | DX: S82.892A Other fracture of left lower leg, initial encounter for closed fracture (principal); X58.XXXA Exposure to other specified factors, initial encounter; Y93.9 Activity, unspecified; Y92.9 Unspecified place or not applicable; Y99.9 Unspecified external cause status | CPT/HCPCS: 99212 ==

== ENCOUNTER 2023-05-08 12:57 | Day surgery (SDC) | payer MEDICAID, SELFPAY ==
[2023-05-08] VITALS (8 sets, daily range): BP systolic 110–163; BP diastolic 69–97; PULSE 84–104; RESP 12–18; TEMP 36.3–36.8; O2SAT 92–94; BMI 45.0
--- NOTE | ~2023-05-08 | FL_ITS ---
EXAMINATION: XR FLUOROSCOPY WITH IMAGES CLINICAL INFORMATION: History of left ankle fracture. COMPARISON: Prior radiographs, most recently 04/23/2023. TECHNIQUE: Fluoroscopy Supervised By: Dr. Braxton Bragg. Fluoroscopy Time: 0.0. Cumulative Dose: 0.147 mGy. DAP: 0.72780 mGym2. Images: 2. FINDINGS: The submitted images show a fixator plate and fixator screws applied to the distal left fibula. The fracture is in good alignment. A further slightly displaced fracture is noted of the posterior malleolus, in improved alignment. FL/FL guidance in OR IMPRESSION: Intraoperative fluoroscopic guidance is provided during ORIF of a distal left fibular fracture. Please see the patient's Operative Report for full procedural details.
--- NOTE | 2023-05-08 13:15 | HO.ANESPROP2 ---
HPI - Anesthesia Eval Consult details Narrative: ankle fracture for repair PMFSH Active Problems Active Problems: All Active Problems (Updated 04/25/23 @ 08:59 by Braxton Bragg MD) Closed left ankle fracture (Acute) Venous stasis (Acute) MDD (major depressive disorder), recurrent episode, mild (Acute) HILDA (generalized anxiety disorder) (Acute) HTN (hypertension), benign (Acute) Morbid obesity (Acute) Abnormal mammogram of right breast (Acute) Past Medical History Medical History Obesity Hypertension Family History Family History Brother History of prostate cancer Paternal Aunt History of lung cancer Paternal Aunt History of brain cancer Paternal Aunt History of ovarian cancer Paternal Aunt History of lung cancer Paternal Grandmother History of bone cancer Mother Hypertension Emphysema/COPD Father Diabetes Brother No problems noted. Brother No problems noted. Sister No problems noted. Son No problems noted. Son No problems noted. Son No problems noted. Family history of problems with anesthesia: No Surgical History Surgical History History of wisdom tooth extraction History of tubal ligation History of Problems with Anesthesia: No Social History Social History Alcohol intake: current Alcohol intake frequency: holidays/special occasions only Patient Tobacco Use Status: Never used Tobacco Use of substances other than those prescribed or required for medical reasons: No Are you DNR?: No Advance Directives: No Advance Directives Information Provided: Yes Meds Allergies Allergy/AdvReac Type Severity Reaction Status Date / Time aspirin [ASPIRIN] Allergy Intermediate SWELLING, Verified 07/13/22 14:05 face swells Penicillins [PENICILLINS] Allergy Mild BLISTERS Verified 07/13/22 14:05 penicillin V Allergy Unknown blisters Verified 07/13/22 14:05 Home Medications Medication Instructions Recorded Confirmed Last Taken Type hydrochlorothiazide 25 mg tablet 25 mg PO DAILY 04/14/20 05/08/23 Unknown History losartan 100 mg tablet 100 mg PO DAILY 04/14/20 05/08/23 07/19/22 06:30 History bupropion HCl 150 mg 24 hr tablet, 150 mg PO QAM 05/08/23 05/08/23 Unknown History extended release levothyroxine 75 mcg tablet 75 mcg PO QAM 05/08/23 05/08/23 Unknown History paroxetine HCl 20 mg tablet 20 mg PO QAM 05/08/23 05/08/23 Unknown History Exam Height,Weight and Vital Signs: Height 5 ft 4 in Weight 118.841 kg Airway Mallampati Class: II TM Dist: >3cm Neck ROM: Full Heart: rrr Lungs: cta Assessment and Plan Assessment Anesthesia Assessment: Anesthesia Plan Discussed and Chart Reviewed Final Anesthetic Review Family History of Problems with Anesthesia: No History of Problems with Anesthesia: No ASA Class: III (morbid obesity) Final Preanesthetic Review: No Changes in Pt Med Stat, Meds/Allgs Chart Reviewed, Consent Obtained/Reviewed and Anes Risks/Benef Reviewed Patient Risk: Intermediate Procedure Risk: Intermediate Anesthetic Plan Anesthetic Plan: GA and Regional Block Disposition: Standard PACU
[2023-05-08] MEDS: Famotidine/PF 20 MG/2 ML VIAL IVPUSH (13:39)
--- NOTE | 2023-05-08 13:53 | MHC.SHP ---
Pre-Procedural Eval Section A - 24 Hr Update-Section A only Date of Service: 05/08/23 The patient is an INPATIENT: No Changes since office visit: No Cold of Flu in the past 2 weeks, No New Medical Problems, No Changes in Medication and No Patient answered all questions The patient has been examined within 24 hours of the surgical procedure. The History & Physical has been completed within 30 days and I have reviewed it.: Yes Section B - Complete if H&P > 30 days Chief Complaint: Other fracture of left lower leg, initial encounte Allergies: Allergies Allergy/AdvReac Type Severity Reaction Status Date / Time aspirin [ASPIRIN] Allergy Intermediate SWELLING, Verified 07/13/22 14:05 face swells Penicillins [PENICILLINS] Allergy Mild BLISTERS Verified 07/13/22 14:05 penicillin V Allergy Unknown blisters Verified 07/13/22 14:05 Plan I have reviewed the history and physical and performed a pertinent physical examination on my patient. No changes have occurred unless specified. Time Spent With Patient Time: Total time managing care of this patient today ____ minutes.
--- NOTE | 2023-05-08 15:36 | PM.OP ---
Brief Operative Note Date of Service: 05/08/23 Pre-op diagnosis: left ankle fracture Post-op diagnosis: same Procedure: ORIF left distal fibula Implants: [place] fibular locking plate Surgeon: Braxton Bragg MD Anesthesia: GETA and local Was an Checker Product Design used for this Procedure?: Yes Checker Product Design: Sharlene Crocker Estimated blood loss (mL): 20 Tourniquet time (min): 40 IV fluids (mL): 700 Pathology: none sent Condition: stable Disposition: PACU
--- NOTE | 2023-05-10 14:53 | W.PM.OPN ---
Operative Note Operative Note Date of Service: 05/08/23 Narrative: Date of Service: 05/08/23 Pre-op diagnosis: left ankle fracture Post-op diagnosis: same Procedure: ORIF left distal fibula Implants: [place] fibular locking plate Surgeon: Braxton Bragg MD Anesthesia: GETA and local Was an Rehabilitation Services Aide used for this Procedure?: Yes Rehabilitation Services Aide: Sharlene Crocker Estimated blood loss (mL): 20 Tourniquet time (min): 40 IV fluids (mL): 700 Pathology: none sent Condition: stable Disposition: PACU Procedure in detail: Patient was brought to the operating room and placed supine on the operative table. All bony prominences were well padded and a time-out was called to identify proper site proper procedure proper surgeon. IV antibiotics per weight were administered. I began by exsanguinating limb is slightly tourniquet to 300 mm Hg. I then made a standard posterolateral incision over the fibula. The patient had resolving fracture blisters which were unroofed and the area again sterilized with iodine. Full-thickness flaps were taken down to the fibular shaft and distal fibula. The fracture was identified and cleaned with a combination of curette, rongeur and irrigation. A lobster claw was used to provisionally reduce the fracture and a lag screw was placed perpindicular to the fracture from posterior to anterior and distal to proximal. A 6 hole distal fibular locking plate was applied using standard AO technique. Biplanar fluoroscopy was used to confirm hardware position and fracture reduction. Once I was satisfied that both of these were acceptable I irrigated copiously and turned my attention the the syndesmosis. Using an external rotation test the syndesmosis was found to be stable. Therefore all instrumentation was removed and copious irrigation was performed. Nylon suture was used and the patient was placed into a Ralph vacuum dressing and a well-padded posterior splint. Tourniquet was let down and the patient was extubated brought to recovery room in stable condition there were no known complications.
== END 2023-05-08 16:51 | disposition home or self-care (01) ==
LOC: HO.SSS 12:58
PROVIDERS: PCP General Practice; Visit Provider Orthopaedic Surgery
PROC: (CPT 27792; principal; 2023-05-08 15:20)
DX: S82.62XA Displaced fracture of lateral malleolus of left fibula, initial encounter for closed fracture (principal); W01.0XXA Fall on same level from slipping, tripping and stumbling without subsequent striking against object, initial encounter; Y93.89 Activity, other specified; Y92.89 Other specified places as the place of occurrence of the external cause; Y99.9 Unspecified external cause status; I10 Essential (primary) hypertension; E66.9 Obesity, unspecified; Z79.899 Other long term (current) drug therapy; Z88.0 Allergy status to penicillin; Z88.8 Allergy status to other drugs, medicaments and biological substances
CPT/HCPCS: 27792; C1713; J0131; J0665; J0736; J1100; J1170; J2250; J2371; J2405; J2704; J3010

== ENCOUNTER → 2023-05-08 12:57 | Outpatient (BNV) | payer MEDICAID, SELFPAY | PROVIDERS: PCP General Practice; Visit Provider Orthopaedic Surgery | DX: S82.892A Other fracture of left lower leg, initial encounter for closed fracture (principal) | CPT/HCPCS: 27792 ==

== ENCOUNTER 2023-05-13 11:17 | Outpatient (AMB) | payer MEDICAID, SELFPAY ==
--- NOTE | 2023-05-13 11:20 | MHC.OFFVIS ---
Intake Intake Visit Reasons: PO LT Ankle ORIF 05/08/23 NE Intake Note: Ame aranda 53 year old female presents today for a post operative left ankle ORIF on 05/08/23 NE. Patient reports after surgery she was in a lot of pain and felt pressure however she has had improvement. Allergies aspirin [ASPIRIN] Allergy (Intermediate, Verified 05/13/23 11:22) SWELLING, face swells Penicillins [PENICILLINS] Allergy (Mild, Verified 05/13/23 11:22) BLISTERS penicillin V Allergy (Unknown, Verified 05/13/23 11:22) blisters HPI PO LT Ankle ORIF 05/08/23 NE HPI Details 53-year-old female returns to the office today status post left ankle ORIF on May [address] Bragg. She continues to remain nonweightbearing in a posterior splint. States her pain is more tolerable no concerns today. [facility]LY [facility] Medical History Obesity Hypertension Surgical History History of wisdom tooth extraction History of tubal ligation Family History Brother History of prostate cancer Paternal Aunt History of lung cancer Paternal Aunt History of brain cancer Paternal Aunt History of ovarian cancer Paternal Aunt History of lung cancer Paternal Grandmother History of bone cancer Mother Hypertension Emphysema/COPD Father Diabetes Brother No problems noted. Brother No problems noted. Sister No problems noted. Son No problems noted. Son No problems noted. Son No problems noted. Social History Alcohol intake: current Alcohol intake frequency: holidays/special occasions only Patient Tobacco Use Status: Never used Tobacco Review of Systems Const All systems reviewed & are unremarkable except as noted in HPI and below Physical Exam Extrem Other: Left ankle incision is clean dry and intact. Medial-sided blisters are healing. No signs of redness drainage or excessive swelling. Pulses and sensation are intact. Office Procedures Casting/Splints 78981-[id number] Leg splint application Procedure code (CPT) selection complete Assessment & Plan Assessment & Plan (1) Closed left ankle fracture: Code(s): S82.892A - Other fracture of left lower leg, initial encounter for closed fracture Qualifiers: Encounter type: subsequent encounter Fracture healing: with routine healing Qualified Code(s): S82.892D - Other fracture of left lower leg, subsequent encounter for closed fracture with routine healing Plan: Ralph device was removed and a Prevena dressing was applied. She was placed in a new posterior leg splint in neutral position and she will remain nonweightbearing. She will see me back in 1 week with splint off and x-rays and potentials staple removal. Coding Level of Care Code Global (49082) Diagnoses Closed fracture of left ankle with routine healing, subsequent encounter S82.892D Encounter type: subsequent encounter Fracture healing: with routine healing CPT Codes Splint - CPT: 39324-Tmpaf Leg splint application ([id number])
== END 2023-05-13 12:03 | disposition home or self-care (01) ==
PROVIDERS: PCP General Practice; Visit Provider Physician Assistant
DX: S82.892D Other fracture of left lower leg, subsequent encounter for closed fracture with routine healing (principal)
CPT/HCPCS: 29515; 99024

== ENCOUNTER → 2023-05-13 11:17 | Outpatient (BNVA) | payer MEDICAID, SELFPAY | PROVIDERS: PCP General Practice; Visit Provider Physician Assistant | DX: S82.892D Other fracture of left lower leg, subsequent encounter for closed fracture with routine healing (principal); Z98.890 Other specified postprocedural states; X58.XXXD Exposure to other specified factors, subsequent encounter | CPT/HCPCS: 29515; 99212 ==

== ENCOUNTER 2023-05-23 12:23 | Outpatient (AMB) | payer MEDICAID, SELFPAY ==
--- NOTE | 2023-05-23 12:38 | A.OFFVIS_ITS ---
Intake Intake Visit Reasons: PO LT Ankle ORIF 05/08/23 NE Intake Note: Ame a 53 year old female presents today for a post operative left ankle ORIF on 05/08/23 NE. Patient reports she is doing well, states some improvement. Her current pain level is 6-7 out of 10. Allergies aspirin [ASPIRIN] Allergy (Intermediate, Verified 05/23/23 12:41) SWELLING, face swells Penicillins [PENICILLINS] Allergy (Mild, Verified 05/23/23 12:41) BLISTERS penicillin V Allergy (Unknown, Verified 05/23/23 12:41) blisters HPI PO LT Ankle ORIF 05/08/23 NE HPI Details 53-year-old female who returns to the [facility] today for post-op left ankle ORIF, 05/08/[address] Bragg. She states she has improvement in her pain however she does c/o pain in her ankle and rates the pain as about 6 on the scale of 0-10. She is doing well otherwise and has no other concerns today. [facility] Medical History Obesity Hypertension Surgical History History of wisdom tooth extraction History of tubal ligation Family History Brother History of prostate cancer Paternal Aunt History of lung cancer Paternal Aunt History of brain cancer Paternal Aunt History of ovarian cancer Paternal Aunt History of lung cancer Paternal Grandmother History of bone cancer Mother Hypertension Emphysema/COPD Father Diabetes Brother No problems noted. Brother No problems noted. Sister No problems noted. Son No problems noted. Son No problems noted. Son No problems noted. Social History Alcohol intake: current Alcohol intake frequency: holidays/special occasions only Patient Tobacco Use Status: Never used Tobacco Review of Systems Const All systems reviewed & are unremarkable except as noted in HPI and below Physical Exam Extrem Other: Left ankle: Normal to inspection. No erythema or drainage. Lateral incision is clean, dry and intact. There is an area inferior to the incision that has some moisture to it. She also has some swelling at the dorsum of foot. NVI. Office Procedures Casting/Splints 59135-[id number] Leg Cast Application Procedure code (CPT) selection complete Results Reviewed Results Reviewed: Xrays were obtained in the office today and personally reviewed by me of the left nakle show intact hardware with stable fracture pattern Assessment & Plan Assessment & Plan (1) Closed left ankle fracture: Code(s): S82.892A - Other fracture of left lower leg, initial encounter for closed fracture Qualifiers: Encounter type: subsequent encounter Fracture healing: with routine healing Qualified Code(s): S82.892D - Other fracture of left lower leg, subsequent encounter for closed fracture with routine healing Plan Sutures removed today, steri strips applied. She was placed in a short leg cast and will remain non weight bearing. I stressed the importance to continue with elevation. She will see me back in 1 week for cast off and wound check, sooner if needed. Orders: Orders XR ankle LT min 3V Today M25.572 - Pain in left ankle and joints of left foot Patient Instructions: Scribed for Concepcion Ireland PA-C, by Martín Reyes special forces medical sergeant, on 05/23/2023 at 12:45 PM EST. I, Concepcion Ireland PA-C, have personally reviewed and agree with the information entered by the scribe. Coding Level of Care Code Global (34159) Diagnoses Closed fracture of left ankle with routine healing, subsequent encounter S82.892D Encounter type: subsequent encounter Fracture healing: with routine healing CPT Codes Casting - CPT: 67310-Mofsr Leg Cast Application ([id number])
== END 2023-05-23 14:23 | disposition home or self-care (01) ==
LOC: HO.HOS 12:23
PROVIDERS: PCP General Practice; Visit Provider Physician Assistant
DX: S82.892D Other fracture of left lower leg, subsequent encounter for closed fracture with routine healing (principal)
CPT/HCPCS: 29405; 99024

== ENCOUNTER 2023-05-23 12:23 | Outpatient (REF) | payer MEDICAID, SELFPAY ==
--- NOTE | ~2023-05-23 | XR_ITS ---
EXAMINATION: XR ANKLE, LEFT CLINICAL INFORMATION: Pain. COMPARISON: Prior radiographs, most recently 04/23/2023. TECHNIQUE: AP, lateral, and mortise views of the left ankle. FINDINGS: There is mild bony demineralization. The ankle mortise is intact. There is stable alignment of an oblique fracture of the distal left fibula, with intact orthopedic fixator plate and fixator screws. No hardware failure or loosening noted. There is a small linear calcification and mild periosteal reaction adjacent to the medial malleolus, which may represent a minimal avulsion. No left ankle joint effusion is seen. Boehler's angle is normal. There are small posterior and moderate plantar calcaneal spurs. There is mild soft tissue swelling adjacent to the medial malleolus. No soft tissue gas or foreign body is seen. XR/XR ankle LT min 3V IMPRESSION: 1. There is stable mild displacement of an oblique fracture of the distal left fibula status-post ORIF. No hardware failure or loosening is seen. 2. A minimal cortical avulsion is questioned of the medial malleolus.
== END 2023-05-23 12:24 | disposition home or self-care (01) ==
LOC: HO.HOSX 12:23
PROVIDERS: PCP General Practice; Visit Provider Physician Assistant
DX: M25.572 Pain in left ankle and joints of left foot (principal); S82.892D Other fracture of left lower leg, subsequent encounter for closed fracture with routine healing; X58.XXXD Exposure to other specified factors, subsequent encounter
CPT/HCPCS: 29405; 73610; 99212

== ENCOUNTER 2023-05-30 12:59 | Outpatient (AMB) | payer MEDICAID, SELFPAY ==
--- NOTE | 2023-05-30 13:14 | A.OFFVIS_ITS ---
Intake Intake Visit Reasons: PO LT Ankle ORIF 05/08/23 NE Intake Note: Ame a 53 year old female who presents today for a post operative left ankle ORIF on 05/08/23 NE. Patient reports she is having burning sensation on her lateral aspect of foot and pain in her middle toe. Allergies aspirin [ASPIRIN] Allergy (Intermediate, Verified 05/23/23 12:41) SWELLING, face swells Penicillins [PENICILLINS] Allergy (Mild, Verified 05/23/23 12:41) BLISTERS penicillin V Allergy (Unknown, Verified 05/23/23 12:41) blisters HPI PO LT Ankle ORIF 05/08/23 NE HPI Details 53-year-old female who returns to the [facility] today for post-op left ankle ORIF, 05/08/[address] Bragg. She reports she has a burning sensation at the lateral aspect of her foot as well as pain in her middle toe. She is doing well otherwise and has no other concerns today. [facility] Medical History Obesity Hypertension Surgical History History of wisdom tooth extraction History of tubal ligation Family History Brother History of prostate cancer Paternal Aunt History of lung cancer Paternal Aunt History of brain cancer Paternal Aunt History of ovarian cancer Paternal Aunt History of lung cancer Paternal Grandmother History of bone cancer Mother Hypertension Emphysema/COPD Father Diabetes Brother No problems noted. Brother No problems noted. Sister No problems noted. Son No problems noted. Son No problems noted. Son No problems noted. Social History Alcohol intake: current Alcohol intake frequency: holidays/special occasions only Patient Tobacco Use Status: Never used Tobacco Review of Systems Const All systems reviewed & are unremarkable except as noted in HPI and below Physical Exam Extrem Other: Left ankle: Incision clean, dry and intact. No open wound or abrasion. No blisters. NVI. Office Procedures Casting/Splints [id number]-[id number] Leg Cast Application Procedure code (CPT) selection complete Assessment & Plan Assessment & Plan (1) Closed left ankle fracture: Code(s): S82.892A - Other fracture of left lower leg, initial encounter for closed fracture Qualifiers: Encounter type: subsequent encounter Fracture healing: with routine healing Qualified Code(s): S82.892D - Other fracture of left lower leg, subsequent encounter for closed fracture with routine healing Plan New cast was applied today, she will continue non weight bearing. She will continue with elevation and see me back in 3 weeks with cast off and new x-rays, sooner if needed. Patient Instructions: Scribed for Concepcion Ireland PA-C, by Martín Reyes medical doctor, on 05/30/2023 at 1:30 PM EST. I, Concepcion Ireland PA-C, have personally reviewed and agree with the information entered by the scribe. Coding Level of Care Code Global (89522) Diagnoses Closed fracture of left ankle with routine healing, subsequent encounter S82.892D Encounter type: subsequent encounter Fracture healing: with routine healing CPT Codes Casting - CPT: 07570-Mzeyk Leg Cast Application ([id number])
== END 2023-05-30 14:01 | disposition home or self-care (01) ==
PROVIDERS: PCP General Practice; Visit Provider Physician Assistant
DX: S82.892D Other fracture of left lower leg, subsequent encounter for closed fracture with routine healing (principal); W01.0XXD Fall on same level from slipping, tripping and stumbling without subsequent striking against object, subsequent encounter
CPT/HCPCS: 29405; 99024

== ENCOUNTER → 2023-05-30 12:59 | Outpatient (BNVA) | payer MEDICAID, SELFPAY | PROVIDERS: PCP General Practice; Visit Provider Physician Assistant | DX: S82.892D Other fracture of left lower leg, subsequent encounter for closed fracture with routine healing (principal) | CPT/HCPCS: 29405; 99212 ==

== ENCOUNTER 2023-06-17 15:25 | Outpatient (REF) | payer MEDICAID, SELFPAY ==
--- NOTE | ~2023-06-17 | MM_ITS ---
EXAMINATION: MM SCREENING DIGITAL BREAST TOMOSYNTHESIS, BILATERAL CLINICAL INFORMATION: Screening. Asymptomatic. COMPARISON: Mammography: This study is compared with prior exams dating back to 2015. TECHNIQUE: Digital breast tomosynthesis is performed in both the craniocaudal and mediolateral oblique views along with computer-aided detection (CAD). Synthesized 2D images are generated from the tomosynthesis. FINDINGS: There are scattered areas of fibroglandular density (ACR BI-RADS breast composition Category b). There are no significant masses, abnormal calcifications, or other abnormalities. There is a tissue marker in each breast from prior benign percutaneous biopsies. There are few, bilateral, benign calcifications in each breast. MM/MM tomosynthesis screening BI IMPRESSION: No mammographic evidence of malignancy. ASSESSMENT: BI-RADS BI-RADS 2 - Benign Findings RECOMMENDATION: Routine annual mammography screening. 1 year F/U This examination should not preclude the clinical evaluation of a suspicious palpable abnormality. This patient's information was entered into a reminder system with a target due date for their next mammogram.
== END 2023-06-17 15:26 | disposition home or self-care (01) ==
LOC: HO.MAMMO 15:25
PROVIDERS: PCP General Practice; Visit Provider General Practice
DX: Z12.31 Encounter for screening mammogram for malignant neoplasm of breast (principal)
CPT/HCPCS: 77063; 77067

== ENCOUNTER → 2023-06-17 15:45 | Outpatient (BNV) | payer MEDICAID, SELFPAY | PROVIDERS: PCP General Practice; Visit Provider Radiology Diagnostic Radiology | DX: Z12.31 Encounter for screening mammogram for malignant neoplasm of breast (principal) | CPT/HCPCS: 77063; 77067 ==

== ENCOUNTER 2023-06-27 09:21 | Outpatient (REF) | payer MEDICAID, SELFPAY ==
--- NOTE | ~2023-06-27 | XR_ITS ---
EXAMINATION: XR ANKLE, LEFT CLINICAL INFORMATION: Pain COMPARISON: 05/23/2023 TECHNIQUE: AP, lateral, and mortise views of the left ankle. FINDINGS: Status post distal left fibular ORIF without evidence of hardware complication. Unchanged alignment of distal fibular fracture. Periosteal reaction versus ossific density from a small avulsion injury along the medial malleolus, similar to prior study. Ankle mortise is preserved. Plantar calcaneal spurs. XR/XR ankle LT min 3V IMPRESSION: Status post distal left fibular ORIF without evidence of hardware complication. Unchanged alignment of distal fibular fracture. Periosteal reaction versus ossific density from a small avulsion injury along the medial malleolus, similar to prior study.
== END 2023-06-27 09:22 | disposition home or self-care (01) ==
LOC: HO.HOSX 09:21
PROVIDERS: Visit Provider Physician Assistant
DX: S82.892D Other fracture of left lower leg, subsequent encounter for closed fracture with routine healing (principal)
CPT/HCPCS: 73610; 99212

== ENCOUNTER 2023-06-27 12:37 | Outpatient (AMB) | payer MEDICAID, SELFPAY ==
--- NOTE | 2023-06-27 13:11 | MHC.OFFVIS ---
Intake Visit Reasons: ov-PO LT Ankle ORIF 05/08/23 NE Allergies aspirin [ASPIRIN] Allergy (Intermediate, Verified 05/23/23 12:41) SWELLING, face swells Penicillins [PENICILLINS] Allergy (Mild, Verified 05/23/23 12:41) BLISTERS penicillin V Allergy (Unknown, Verified 05/23/23 12:41) blisters HPI HPI ov-PO LT Ankle ORIF 05/08/23 NE: Details: 53-year-old female who returns to the office today for post-op left ankle ORIF, 05/08/[address] Bragg. FOR[facility]LY [facility] Medical History Obesity Hypertension Surgical History History of wisdom tooth extraction History of tubal ligation Family History Brother History of prostate cancer Paternal Aunt History of lung cancer Paternal Aunt History of brain cancer Paternal Aunt History of ovarian cancer Paternal Aunt History of lung cancer Paternal Grandmother History of bone cancer Mother Hypertension Emphysema/COPD Father Diabetes Brother No problems noted. Brother No problems noted. Sister No problems noted. Son No problems noted. Son No problems noted. Son No problems noted. Social History Alcohol intake: current Alcohol intake frequency: holidays/special occasions only Patient Tobacco Use Status: Never used Tobacco Review of Systems Const All systems reviewed & are unremarkable except as noted in HPI and below Physical Exam Extrem Other: Left ankle: Incision well healed. Moderate swelling over the distal part of the foot. No open wound or abrasion. No blisters. NVI. Results Reviewed Results Reviewed: Xrays were obtained in the office today and personally reviewed by me of the left ankle show intact hardware with stable fracture pattern Assessment & Plan Assessment & Plan (1) Closed left ankle fracture: Code(s): S82.892A - Other fracture of left lower leg, initial encounter for closed fracture Category: Medical Qualifiers: Encounter type: subsequent encounter Fracture healing: with routine healing Qualified Code(s): S82.892D - Other fracture of left lower leg, subsequent encounter for closed fracture with routine healing Plan She was transitioned to a tall walking boot which he will begin weight bearing as tolerated. I placed an order for physical therapy to work on ROM, gait training, gentle strengthening and proprioceptive training. I would like to see her back in 6 weeks with x-rays, sooner if needed. Orders: Orders PT Evaluation and Treatment Today S82.892D - Other fracture of left lower leg, subsequent encounter for closed fracture with routine healing XR ankle LT min 3V Today M25.572 - Pain in left ankle and joints of left foot Patient Instructions: Scribed for Concepcion Ireland PA-C, by Martín Reyes medical numerical control operator, on 06/27/2023 at 12:45 PM EST. Gayle, Concepcion Ireland PA-C, have personally reviewed and agree with the information entered by the scribe. Coding Level of Care Code Global (06254) Diagnoses Closed fracture of left ankle with routine healing, subsequent encounter S82.892D Encounter type: subsequent encounter Fracture healing: with routine healing
== END 2023-06-27 13:39 | disposition home or self-care (01) ==
PROVIDERS: PCP General Practice; Visit Provider Physician Assistant
DX: S82.892D Other fracture of left lower leg, subsequent encounter for closed fracture with routine healing (principal)
CPT/HCPCS: 99024

== ENCOUNTER 2023-07-29 14:06 | Outpatient (REF) | payer MEDICAID, SELFPAY ==
[2023-07-29 16:29] LABS: Alanine Aminotransferase 80 U/L (0-31); Albumin Level 3.7 g/dL (3.5-5.0); Alkaline Phosphatase 93 U/L (39-117); Anion Gap 10 (12-20); Aspartate Amino Transferase 60 U/L (5-31); Bilirubin Total 0.3 mg/dL (0.0-1.0); Blood Urea Nitrogen 11 mg/dL (9-16); Calcium 9.1 mg/dL (8.4-10.2); Carbon Dioxide 28 mmol/L (22-29); Chloride 106 mmol/L (96-108); Cholesterol 137 mg/dL (<200); Estimated Glomerular Filt Rate > 60; Glucose Random 117 mg/dL (60-115); HDL Cholesterol 46 mg/dL (>40); LDL Cholesterol Calculated 65 mg/dL (<100); Potassium 3.5 mmol/L (3.3-5.1); Sodium 140 mmol/L (135-145); Total Protein 7.5 g/dL (6.5-8.0); Triglycerides 131 mg/dL (<150)
[2023-07-29 16:34] LABS: TSH reflex Free T4 7.35 uIU/mL (0.32-4.0)
[2023-07-29 17:11] LABS: Free T4 (Free Thyroxine) 0.83 ng/dL (0.71-1.85)
== END 2023-07-29 14:07 | disposition home or self-care (01) ==
LOC: HO.HHCL 14:06
PROVIDERS: Visit Provider General Practice
DX: I10 Essential (primary) hypertension (principal)
CPT/HCPCS: 36415; 80053; 80061; 84439; 84443

== ENCOUNTER 2023-08-08 06:46 | Outpatient (REF) | payer MEDICAID, SELFPAY ==
--- NOTE | ~2023-08-08 | XR_ITS ---
EXAMINATION: XR ANKLE, LEFT CLINICAL INFORMATION: Pain in left ankle and joints of left foot. COMPARISON: June 27, 2023, May 23, 2023, April 23, 2023. TECHNIQUE: AP, lateral, and mortise views of the left ankle. FINDINGS: Status post ORIF distal fibula. Hardware appears intact. Similar alignment of previously noted distal fibular fracture. Redemonstration of mild periosteal reaction versus ossific density from small avulsion injury along the medial malleolus. Plantar calcaneal spurs. XR/XR ankle LT min 3V IMPRESSION: 1. Status post ORIF distal fibula. Hardware appears intact. Similar alignment of previously noted distal fibular fracture. 2. Redemonstration of mild periosteal reaction versus ossific density from small avulsion injury along the medial malleolus.
== END 2023-08-08 06:47 | disposition home or self-care (01) ==
LOC: HO.HOSX 06:46
PROVIDERS: Visit Provider Physician Assistant
DX: M25.572 Pain in left ankle and joints of left foot (principal); S82.892D Other fracture of left lower leg, subsequent encounter for closed fracture with routine healing; X58.XXXD Exposure to other specified factors, subsequent encounter
CPT/HCPCS: 73610; 99212

== ENCOUNTER 2023-08-08 13:06 | Outpatient (AMB) | payer MEDICAID, SELFPAY ==
--- NOTE | 2023-08-08 13:25 | A.OFFVIS_ITS ---
Intake Visit Reasons: PO- ORIF left ankle 05/08/23 w xry Intake Note: Ame a 53 year old female who presents today for a post operative left ankle ORIF on 05/08/23 NE. Patient reports she is doing well, states having discomfort that feels like a burning sensation at the lateral and medical aspect of ankle. She started working with PT last week. She continues to wear boot as instructed. Allergies aspirin [ASPIRIN] Allergy (Intermediate, Verified 08/08/23 13:30) SWELLING, face swells Penicillins [PENICILLINS] Allergy (Mild, Verified 08/08/23 13:30) BLISTERS penicillin V Allergy (Unknown, Verified 08/08/23 13:30) blisters Medication List - Last Reconciled 08/08/23 by Concepcion Ireland PA-C bupropion HCl XL 150 mg PO QAM compr.stocking,thigh,short,lrg As directed hydrochlorothiazide 25 mg PO DAILY levothyroxine 75 mcg PO QAM losartan 100 mg PO DAILY paroxetine HCl 20 mg PO QAM HPI HPI PO- ORIF left ankle 05/08/23 w xry: Details: 53-year-old female who returns to the office today for post-op left ankle ORIF, 05/08/23. She reports she has discomfort and a burning sensation at the lateral aspect and medial aspect of her ankle. She has started with physical therapy last week. She continues to wear the boot as instructed. She is doing well overall and has no other concerns today. [facility]LY [facility], [facility] Medical History Obesity Hypertension Surgical History (Reviewed 08/08/23 @ 13:30 by Rebeka Rooney [facility]) History of wisdom tooth extraction History of tubal ligation Family History Brother History of prostate cancer Paternal Aunt History of lung cancer Paternal Aunt History of brain cancer Paternal Aunt History of ovarian cancer Paternal Aunt History of lung cancer Paternal Grandmother History of bone cancer Mother Hypertension Emphysema/COPD Father Diabetes Brother No problems noted. Brother No problems noted. Sister No problems noted. Son No problems noted. Son No problems noted. Son No problems noted. Social History Alcohol intake: current Alcohol intake frequency: holidays/special occasions only Patient Tobacco Use Status: Never used Tobacco Review of Systems Const All systems reviewed & are unremarkable except as noted in HPI and below Physical Exam Extrem Other: Left ankle: Incision well healed. Moderate swelling over the distal part of the foot. No open wound or abrasion. No blisters. NVI. Results Reviewed Results Reviewed: Xrays were obtained in the office today and personally reviewed by me of the left ankle show intact hardware with stable fracture pattern Assessment & Plan Assessment & Plan (1) Closed left ankle fracture: Code(s): S82.892A - Other fracture of left lower leg, initial encounter for closed fracture Category: Medical Qualifiers: Encounter type: subsequent encounter Fracture healing: with routine h ealing Qualified Code(s): S82.892D - Other fracture of left lower leg, subsequent encounter for closed fracture with routine healing Plan She will continue with physical therapy specifically to work on aggressive ROM and strengthening. She was also given a lace up ankle brace in the office today which she will transition to and she will follow-up to our office in 6 weeks for reevaluation sooner if needed. Orders: Orders XR ankle LT min 3V Today M25.572 - Pain in left ankle and joints of left foot Patient Instructions: Scribed for Concepcion Ireland PA-C, by Martín Reyes medical office receptionist assistant, on 08/08/2023 at 1:00 PM EST.? I, Concepcion Ireland PA-C, have personally reviewed and agree with the information entered by the scribe. Coding Level of Care Code Est Pt Level 3 (75181) Diagnoses Closed fracture of left ankle with routine healing, subsequent encounter S82.892D Encounter type: subsequent encounter Fracture healing: with routine healing
== END 2023-08-08 14:26 | disposition home or self-care (01) ==
PROVIDERS: PCP General Practice; Visit Provider Physician Assistant
DX: S82.892D Other fracture of left lower leg, subsequent encounter for closed fracture with routine healing (principal)
CPT/HCPCS: 99213

== ENCOUNTER 2023-09-25 09:42 | Outpatient (REF) | payer MEDICAID, SELFPAY ==
--- NOTE | ~2023-09-25 | XR_ITS ---
EXAMINATION: XR ANKLE, LEFT CLINICAL INFORMATION: Pain. COMPARISON: Prior radiographs, most recently 09/07/2023. TECHNIQUE: AP, lateral, and mortise views of the left ankle. FINDINGS: Bony alignment is normal. There is bony demineralization. An orthopedic plate and side screws are applied to the distal left fibula, without fracture line clearly identified. There is a mildly displaced fracture of the posterior malleolus. The ankle mortise is intact. No left ankle joint effusion is seen. There are small posterior and moderately large plantar calcaneal spurs. Again, there is some periosteal thickening of the medial malleolus. There is generalized soft tissue swelling, without gas or foreign body noted. XR/XR ankle LT min 3V IMPRESSION: 1. There is a intact orthopedic hardware applied to the distal left fibula. The distal left fibular fracture line is now poorly appreciated. 2. A mildly displaced fracture is noted of the posterior malleolus. 3. There are calcaneal spurs. Electronically signed by: Danish Ellis MD 10/23/2023 01:03 PM EDT
== END 2023-09-25 09:43 | disposition home or self-care (01) ==
LOC: HO.HOSX 09:42
PROVIDERS: Visit Provider Physician Assistant
DX: S82.892D Other fracture of left lower leg, subsequent encounter for closed fracture with routine healing (principal)
CPT/HCPCS: 73610; 99212

== ENCOUNTER 2023-09-25 12:57 | Outpatient (AMB) | payer MEDICAID, SELFPAY ==
--- NOTE | 2023-09-25 13:06 | MHC.OFFVIS ---
Intake Visit Reasons: OV-ORIF left ankle 05/08/23 w xry Intake Note: Ame a 53 year old female who presents today for a follow up of left ankle ORIF on 05/08/23. Xray updated. Patient reports that she continues to have swelling in her ankle up to her knee. She has tried icing, elevation, compression sock with no relief. Allergies aspirin [ASPIRIN] Allergy (Intermediate, Verified 09/25/23 13:37) SWELLING, face swells Penicillins [PENICILLINS] Allergy (Mild, Verified 09/25/23 13:37) BLISTERS penicillin V Allergy (Unknown, Verified 09/25/23 13:37) blisters HPI HPI OV-ORIF left ankle 05/08/23 w xry: Details: 53-year-old female who returns to the office today for a follow-up of left ankle ORIF, 05/08/23. She continues to have swelling in her ankle that radiates up to her knee. She has tried icing, elevation, and compression socks with no relief. COUNT INCLUDES THE [facility] Medical History Obesity Hypertension Surgical History History of wisdom tooth extraction History of tubal ligation Family History Brother History of prostate cancer Paternal Aunt History of lung cancer Paternal Aunt History of brain cancer Paternal Aunt History of ovarian cancer Paternal Aunt History of lung cancer Paternal Grandmother History of bone cancer Mother Hypertension Emphysema/COPD Father Diabetes Brother No problems noted. Brother No problems noted. Sister No problems noted. Son No problems noted. Son No problems noted. Son No problems noted. Social History Alcohol intake: current Alcohol intake frequency: holidays/special occasions only Patient Tobacco Use Status: Never used Tobacco Review of Systems Const All systems reviewed & are unremarkable except as noted in HPI and below Physical Exam Extrem Other: Left ankle: Normal to inspection. Incision well heled however she has significant LE edema just below the knee down to her ankle. Mild tenderness along the calf. Sensation intact but pulses are soft. Results Reviewed Results Reviewed: Xrays were obtained in the office today and personally reviewed by me of the left ankle show intact hardware with stable fracture pattern Assessment & Plan Assessment & Plan (1) Closed left ankle fracture: Code(s): S82.892A - Other fracture of left lower leg, initial encounter for closed fracture Category: Medical Qualifiers: Encounter type: subsequent encounter Fracture healing: with routine healing Qualified Code(s): S82.892D - Other fracture of left lower leg, subsequent encounter for closed fracture with routine healing Plan A STAT US of the MIGUEL was ordered to assess for a blood clot. If the results are positive, we will treat her and refer her to PCP for continued treatment. If negative, we will give her compression socks. I also encouraged she weens out from the crutches but given the amount of swelling she has I understand why she is using it for so long. I will see her back once the results are back. Orders: Orders US venous duplex LE LT Today R60.9 - Edema, unspecified, Z76.89 - Persons encountering health services in other specified circumstances XR ankle LT min 3V Today M25.572 - Pain in left ankle and joints of left foot Patient Instructions: Scribed for Concepcion Ireland PA-C, by Martín Reyes medical imaging specialist, on 09/25/2023 at 1:00 PM EST.? I, Concepcion Ireland PA-C, have personally reviewed and agree with the information entered by the scribe. Coding Level of Care Code Est Pt Level 3 (36754) Diagnoses Closed fracture of left ankle with routine healing, subsequent encounter S82.892D Encounter type: subsequent encounter Fracture healing: with routine healing
== END 2023-09-25 14:30 | disposition home or self-care (01) ==
PROVIDERS: PCP General Practice; Visit Provider Physician Assistant
DX: S82.892D Other fracture of left lower leg, subsequent encounter for closed fracture with routine healing (principal)
CPT/HCPCS: 99213

== ENCOUNTER 2023-09-26 12:30 | Outpatient (REF) | payer MEDICAID, SELFPAY ==
--- NOTE | ~2023-09-26 | US_ITS ---
EXAMINATION: US VENOUS ULTRASOUND WITH DOPPLER LOWER EXTREMITY, LEFT CLINICAL INFORMATION: Left leg edema, ankle surgery in 03/2023. COMPARISON: None available. TECHNIQUE: Ultrasound of the deep veins is performed from the hip to the calf with compression sonography and color and pulse Doppler assessment. Spectral analysis with color-flow imaging is performed. FINDINGS: There is normal venous compression and respiratory variation and augmented flow. The visualized common femoral vein, superficial femoral vein, profunda femoral vein, popliteal vein, and the trifurcation region shows no evidence of deep venous thrombosis. The peroneal vein is not well-visualized. There is no significant popliteal fossa cyst. Left calf edema is noted. US/US venous duplex LE LT IMPRESSION: No DVT demonstrated in the left lower extremity.
== END 2023-09-26 12:31 | disposition home or self-care (01) ==
LOC: HO.US 12:30
PROVIDERS: PCP General Practice; Visit Provider Physician Assistant
DX: R60.9 Edema, unspecified (principal); Z76.89 Persons encountering health services in other specified circumstances
CPT/HCPCS: 93971

== ENCOUNTER 2023-11-11 11:33 | Outpatient (AMB) | payer MEDICAID, SELFPAY ==
--- NOTE | 2023-11-11 11:46 | MHC.OFFVIS ---
Intake Visit Reasons: OV- ORIF left ankle 05/08/23 NE Intake Note: Ame a 53 year old female who presents today for a follow up of left ankle ORIF on 05/08/23. Patient reports that she is concerned of a llump at the base of her toes. She also has concerns of a sticking at the lateral aspect of ankle/foot with applying weight. Allergies aspirin [ASPIRIN] Allergy (Intermediate, Verified 11/11/23 11:51) SWELLING, face swells Penicillins [PENICILLINS] Allergy (Mild, Verified 11/11/23 11:51) BLISTERS penicillin V Allergy (Unknown, Verified 11/11/23 11:51) blisters Medication List - Last Reconciled 11/11/23 by Concepcion Ireland PA-C bupropion HCl XL 150 mg PO QAM compr.stocking,thigh,short,lrg As directed hydrochlorothiazide 25 mg PO DAILY levothyroxine 75 mcg PO QAM losartan 100 mg PO DAILY paroxetine HCl 20 mg PO QAM HPI HPI OV- ORIF left ankle 05/08/23 NE: Details: 53-year-old female who returns to the office today for a follow-up of left ankle ORIF, 05/08/[address] Bragg. She states she has a lump at the base of her toes. She also reports of a ?sticking? at the lateral aspect of her foot with applying weight. She is doing well otherwise and has no other concerns today. [facility] Medical History Obesity Hypertension Surgical History History of wisdom tooth extraction History of tubal ligation Family History Brother History of prostate cancer Paternal Aunt History of lung cancer Paternal Aunt History of brain cancer Paternal Aunt History of ovarian cancer Paternal Aunt History of lung cancer Paternal Grandmother History of bone cancer Mother Hypertension Emphysema/COPD Father Diabetes Brother No problems noted. Brother No problems noted. Sister No problems noted. Son No problems noted. Son No problems noted. Son No problems noted. Social History Alcohol intake: current Alcohol intake frequency: holidays/special occasions only Patient Tobacco Use Status: Never used Tobacco Review of Systems Const All systems reviewed & are unremarkable except as noted in HPI and below Physical Exam Const General: cooperative and no acute distress Orientation/consciousness: patient oriented x3 Resp Effort & Inspection: normal respiratory effort and able to speak in complete sentences Cardio Peripheral pulses: Peripheral pulses 2+ throughout Neuro General: patient oriented x3 Extrem Other: Left ankle: Normal to inspection. Incision well heled however she has significant LE edema just below the knee down to her ankle. Mild tenderness along the calf. Sensation intact but pulses are soft. Assessment & Plan Assessment & Plan (1) Closed left ankle fracture: Code(s): S82.892A - Other fracture of left lower leg, initial encounter for closed fracture Category: Medical Qualifiers: Encounter type: subsequent encounter Fracture healing: with routine healing Qualified Code(s): S82.892D - Other fracture of left lower leg, subsequent encounter for closed fracture with routine healing Plan It does not appear to be any infectious etiology to her LLE pain and swelling. I did recommend to contact her PCP to rule out potential vascular or cardiopulmonary source. She is otherwise doing well as far as her ORIF of ankle and she will see me back as needed. Patient Instructions: Scribed for Concepcion Ireland PA-C, by Martín Reyes bilingual medical receptionist, on 11/11/2023 at 11:30 AM EST.? I, Concepcion Ireland PA-C, have personally reviewed and agree with the information entered by the scribe. Coding Level of Care Code Est Pt Level 3 (31153) Complex EM visit Add On [id number] Diagnoses Closed fracture of left ankle with routine healing, subsequent encounter S82.892D Encounter type: subsequent encounter Fracture healing: with routine healing
== END 2023-11-11 12:55 | disposition home or self-care (01) ==
PROVIDERS: PCP General Practice; Visit Provider Physician Assistant
DX: S82.892D Other fracture of left lower leg, subsequent encounter for closed fracture with routine healing (principal)
CPT/HCPCS: 99213

== ENCOUNTER → 2023-11-11 11:33 | Outpatient (BNVA) | payer MEDICAID, SELFPAY | PROVIDERS: PCP General Practice; Visit Provider Physician Assistant | DX: S82.892D Other fracture of left lower leg, subsequent encounter for closed fracture with routine healing (principal) | CPT/HCPCS: 99212 ==

== ENCOUNTER 2023-11-22 14:00 | Outpatient (RCR) | payer MEDICAID, SELFPAY ==
--- NOTE | 2023-07-16 13:48 | MHC.PT.EP ---
[facility] [place] [facility] [place] [facility] [place] [facility] [address] Raymond Batista [address] [phone] F: [phone] F: [phone] F: [phone] F: [phone] Physical Therapy Plan of Care Date of Evaluation: 07/16/23 Date of Surgery: Diagnosis: other fracture of let lower leg, subsequent encounter. Assessment: Patient is a 53 year old R handed female who presents with s/s consistent with other fracture of lower extremity, ORIF of L distal fibula, ankle pain. 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 Patient past medical history includes HTN. Current impairments include pain, balance, ROM, strength, activity tolerance, swelling, and functional mobility. Functional limitations include decreased ability to stand, walk, negotiate stairs, drive, work and weight bear. Patient is motivated with good rehab potential. Skilled PT will address impairments and functional limitations in order to achieve goals. Frequency and Duration: The patient will be seen 2x/week for 5 weeks Short Term Goals: I with HEP - 2 weeks AROM DF 6, PF 24 - 3 weeks SLB > 5 seconds - 4 weeks Alf Goals: LEFS 44/80 - 5 weeks Max pain with ADLs 2/10 - 5 weeks Strength 4/5 grossly - 5 weeks Symmetrical gait mechanics - 5 weeks Treatment Plan: Modalities to reduce pain, spasms and effusion. Manual therapy to restore motion and function. Therapeutic exercise to improve strength and flexibility. Neuromuscular re-education for posture and balance. Therapeutic activities to return to functional activities of daily living. Electronically signed by: Jonathon Crawford, PT Please sign and return to therapist. Thank you for your referral.
--- NOTE | 2024-03-18 10:24 | MHC.PT.DC ---
[facility] [place] Office [place] Office [place] Office [address] Raymond Batista [address] [phone] F: [phone] F: [phone] F: [phone] F: [phone] Physical Therapy Discharge Report Diagnosis: other fracture of let lower leg, subsequent encounter. Date of Surgery: Date of Evaluation: 07/16/23 Date of Discharge: 12/19/23 Treatments to Date: 15 Cancellations to Date: No Shows to Date: Discharge Status: Independent with HEP Discharge Summary: Pt had difficulty progressing throughout with pain in stand, impaired gait mechanics and significant swelling. She elected to hold on further PT at this time. 11/22/23: 57 cm figure 8, 3+ pitting edema present today. educated in ways to control at home. 11/18; Pt working hard with HEP. Pt conts with severe limitation and swelling. Pt has 5 appt remaing. 11/14/23: pt ambulating better today. educed on mechanics including slowing down to improve toe off. still with restrictions in DF that limit mechanics on stairs. 11/06; Pt motivated and pushes herself with pain. Ankle has increased swelling after exs. Trial myofascia release for sxs. 10/28;Pt unable to amb with 1 crutch due to pain. Pt ROM very limited. Ankle e remains swollen. Pt fascia tiht under foot. 10/22; Pt had increased c/o foot and heel pain with step ups. Pt amb wit improved gait after practice with push of with 1 and 2 crutches. Discussed rolling on a tennis ball fro fascia releases. 10/17/23: pt with increased pain and swelling today. notes she went to get US a few weeks ago and was never called about results which caused the lapse in care. She notes she has more pain now than before. she is having significant plantar heel pain since weight bearing that seems to be worsening. 09/17/23: pt limited in ability to weight bear through L LE. limited by pain and swelling. she presents today with increased pain and swelling. she states she does ice at home daily. 09/09/23: pt progressing well with skilled PT. increased standing activities today. no adverse reactions. continue to progress as tolerated. 09/02; Pt had dif with swing through was swinging to. Pt conts with decreased mobility and has increased pain with WB OOB. 08/29/23: pt progressing well with skilled PT. swelling still present. ROM restrictions still there and painful. She will be progressed with ROM, strength, gait and weight bearing as tolerated in upcoming appts. 08/26; Pt felt like the bone med side moved with resisted inv with ylw band and had pain.Pt amn well with 1 crutch recommend she cont. NW gait with brace and 2 crutches. Scab present still lateral ankle the med is resolved. 08/13; Pt was able to perform A ankle exs with little mobility. Ankle is swollen. Scabs still healing mwed lat ankle. Pt is to con in boot with WB. 08/05; Pt was able to A abd her hip in s/l. Pt ankle was able to A perform exs. Pt very sensitive with desensitizing technique. Pt has skin slough off with technique. Scab remains med/lat ankle. Progress as darnell . 07/31; Pt ankle ROM very limited. Pt needed assit with hip abd, but was able to A perform after 10 reps. Pt has scabs on med/lateral ankle with dried skin and swelling. Pt c/o pain MT. Pt crutches were adjusted 1 hole shorter. Patient is a 53 year old R handed female who presents with s/s consistent with other fracture of lower extremity, ORIF of L distal fibula, ankle pain. 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 Patient past medical history includes HTN. Current impairments include pain, balance, ROM, strength, activity tolerance, swelling, and functional mobility. Functional limitations include decreased ability to stand, walk, negotiate stairs, drive, work and weight bear. Patient is motivated with good rehab potential. Skilled PT will address impairments and functional limitations in order to achieve goals. Electronically signed by: Jonathon Crawford, PT Please sign and return to therapist. Thank you for your referral.
== END 2024-03-18 10:24 | disposition home or self-care (01) ==
LOC: HO.PTCHIC 14:00
PROVIDERS: PCP General Practice; Visit Provider Physician Assistant
DX: S82.892D Other fracture of left lower leg, subsequent encounter for closed fracture with routine healing (principal)
CPT/HCPCS: 97110; 97112; 97116; 97140; 97161; 97530

== ENCOUNTER 2023-11-29 13:30 | Outpatient (REF) | payer MEDICAID, SELFPAY ==
--- NOTE | ~2023-11-29 | XR_ITS ---
EXAMINATION: XR FOOT, LEFT CLINICAL INFORMATION: Pain. COMPARISON: Radiograph left ankle 09/25/2023. Radiograph left foot 07/06/2022. TECHNIQUE: AP, lateral, and oblique views of the left foot. FINDINGS: Significant increased diffuse soft tissue swelling. New nonspecific diffuse bone marrow heterogeneity. No displaced fractures or dislocation. Redemonstration of prominent calcaneal enthesopathic spurring. Partially seen fixation plate and traversing screws along the distal fibula. Chronic posterior malleolar fracture of the distal tibia. XR/XR foot LT min 3V IMPRESSION: 1. Significant increased diffuse soft tissue swelling. 2. New nonspecific diffuse bone marrow heterogeneity. 3. No displaced fractures or dislocation. 4. Chronic posttraumatic changes in the distal tibia and fibula as above. 5. Redemonstration of prominent calcaneal enthesopathic spurring. Electronically signed by: Chloé Richter MD 11/29/2023 04:46 PM EDT
--- NOTE | ~2023-11-29 | XR_ITS ---
EXAMINATION: XR KNEE, LEFT CLINICAL INFORMATION: Pain and swelling. COMPARISON: None available. TECHNIQUE: Four views of the left knee. FINDINGS: No acute fracture or dislocation. Mild joint space narrowing of the medial and patellofemoral compartments. No joint effusion. Question asymmetric soft tissue thickening adjacent to the medial facet of the patella on the sunrise view. XR/XR knee LT 4V IMPRESSION: 1. No acute fracture or dislocation. 2. Mild degenerative osteoarthritis of the medial and patellofemoral compartments. 3. Question indeterminate asymmetric soft tissue thickening adjacent to the medial facet of the patella. Recommend correlation with physical examination and if indicated further evaluation with MRI. Electronically signed by: Chloé Richter MD 11/29/2023 04:43 PM EDT
== END 2023-11-29 13:31 | disposition home or self-care (01) ==
LOC: HO.HHCX 13:30
PROVIDERS: Visit Provider General Practice
DX: R60.0 Localized edema (principal)
CPT/HCPCS: 73564; 73630

== ENCOUNTER 2023-12-27 11:37 | Outpatient (REF) | payer MEDICAID, SELFPAY ==
[2023-12-27 12:22] LABS: B Type Natriuretic Peptide 67 pg/mL (<100)
[2023-12-27 12:36] LABS: Alanine Aminotransferase 110 U/L (0-31); Albumin Level 3.7 g/dL (3.5-5.0); Alkaline Phosphatase 92 U/L (39-117); Anion Gap 13 (12-20); Aspartate Amino Transferase 94 U/L (5-31); Bilirubin Total 0.4 mg/dL (0.0-1.0); Blood Urea Nitrogen 14 mg/dL (9-16); Calcium 9.2 mg/dL (8.4-10.2); Carbon Dioxide 26 mmol/L (22-29); Chloride 106 mmol/L (96-108); Estimated Glomerular Filt Rate > 60; Glucose Random 118 mg/dL (60-115); Magnesium 1.9 mg/dL (1.6-2.6); Potassium 3.8 mmol/L (3.3-5.1); Sodium 141 mmol/L (135-145)
[2023-12-27 12:40] LABS: TSH reflex Free T4 4.59 uIU/mL (0.32-4.0)
[2023-12-27 13:32] LABS: Free T4 (Free Thyroxine) 1.04 ng/dL (0.71-1.85)
== END 2023-12-27 11:38 | disposition home or self-care (01) ==
LOC: HO.LAB 11:37
PROVIDERS: PCP General Practice; Visit Provider General Practice
DX: M79.89 Other specified soft tissue disorders (principal); E03.8 Other specified hypothyroidism
CPT/HCPCS: 36415; 80053; 83735; 83880; 84439; 84443

== ENCOUNTER 2024-01-01 14:31 | Outpatient (AMB) | payer MEDICAID, SELFPAY ==
[2024-01-01 14:36] VITALS: BP 134/74; PULSE 93; O2SAT 95; BMI 47.7
--- NOTE | 2024-01-01 14:36 | MHC.OFFVIS ---
Vital Signs 01/01/24 14:36 Height 5 ft 4 in Weight 278 lb BMI 47.7 BP 134/74 Blood Pressure Location Rt brachial Position Sitting Pulse 93 Pulse Source Pulse Oximeter Pulse Oximetry (%) 95 Oxygen Delivery Method Room Air Intake Visit Reasons: closed fracture of left ankle with delayed healing Allergies aspirin [ASPIRIN] Allergy (Intermediate, Verified 01/01/24 14:37) SWELLING, face swells Penicillins [PENICILLINS] Allergy (Mild, Verified 01/01/24 14:37) BLISTERS penicillin V Allergy (Unknown, Verified 01/01/24 14:37) blisters Medication List - Last Reconciled 01/01/24 by Janette Calles cetirizine (All Day Allergy (cetirizine)) 10 mg PO DAILY PRN compr.stocking,thigh,short,lrg As directed levothyroxine 75 mcg PO QAM losartan 100 mg PO DAILY trazodone 25 mg PO DAILY HPI Comments Details: Ame is a very pleasant 53-year-old female who presents to the office today for evaluation and management of her chronic left ankle pain Per ortho noted dated 04/23/2023 This is a 53 yo F who tripped and fell in [place] ~5 days ago. She has a CD with her today that shows a fracture/dislocation of her left ankle. This , she tells us, was reduced in [place]. She was splinted and comes in today for follow up. 05/08/2023 patient underwent ORIF left distal fibula with Dr. Bragg. Since this patient has been suffering with pain and swelling. Recently completed physical therapy with minimal improvement. She had an ultrasound, results as per below. Ruled out for DVT. Has since followed up with orthopedics and was cleared. She has seen ortho and her primary care doctor for the swelling though nobody can give her a reason as to why it is occurring. She denies a history of lower extremity edema. States this only started after the surgery. Left ankle pain is worse with weight-bearing and walking. She is using a postop shoe and crutches to assist. Has been taking nonsteroidal anti-inflammatory medications, Tylenol without improvement of her symptoms. Applying ice, elevating and resting without improvement. She is wearing compression sock on the left but pain and edema persist Pain today is rated as a 9/10, constant all day long. In terms of muscle damage condition is described as aching, stabbing, sharp, hot, burning, pinching, cramping, crushing, sore, hurting, aching, tiring, take, squeezing. Pain is negatively impacting patient's enjoyment of life, general activity, sleep, ability to care for self, ability to function normally. Patient states she needs assistance from her to perform activities of daily living. She has not been able to return to work since the injury. Denies current use of anticoagulants Denies implantable devices, pacemaker defibrillator Denies current use of nicotine, tobacco, alcohol or illicit substances [facility] Medical History Obesity Hypertension Surgical History History of wisdom tooth extraction History of tubal ligation Family History Brother History of prostate cancer Paternal Aunt History of lung cancer Paternal Aunt History of brain cancer Paternal Aunt History of ovarian cancer Paternal Aunt History of lung cancer Paternal Grandmother History of bone cancer Mother Hypertension Emphysema/COPD Father Diabetes Brother No problems noted. Brother No problems noted. Sister No problems noted. Son No problems noted. Son No problems noted. Son No problems noted. Social History Alcohol intake: current Alcohol intake frequency: holidays/special occasions only Patient Tobacco Use Status: Never used Tobacco Review of Systems Const All systems reviewed & are unremarkable except as noted in HPI and below Physical Exam Vital Signs: Last Vital Signs Pulse 93 01/01/24 14:36 BP 134/74 01/01/24 14:36 Pulse Ox 95 01/01/24 14:36 Oxygen Delivery Method Room Air 01/01/24 14:36 BMI result Body Mass Index 47.7 General: awake, alert, oriented. Answers questions appropriately. Fully engaged in examination. Skin: warm, dry, intact HEENT: Normocephalic. Hearing intact. Cardiac: External chest normal in appearance. Respiratory: No cough, audible wheezing or stridor. Abdomen: without gross distension. MS: 2+ pitting edema left lower extremity from just below the knee down to the foot.+DP/PT pulses. Tenderness to palpation left lower leg. No redness, warmth or wounds noted. Skin intact. Neurological: Oriented to person, place, time and situation. Thought process intact. Ambulates with crutches Psychiatric: Appropriate mood and affect. Good judgment and insight. Results Reviewed Results Reviewed: 11/29/2023 XR/XR foot LT min 3V IMPRESSION: 1. Significant increased diffuse soft tissue swelling. 2. New nonspecific diffuse bone marrow heterogeneity. 3. No displaced fractures or dislocation. 4. Chronic posttraumatic changes in the distal tibia and fibula as above. 5. Redemonstration of prominent calcaneal enthesopathic spurring. 09/26/2023 US/US venous duplex LE LT FINDINGS: There is normal venous compression and respiratory variation and augmented flow. The visualized common femoral vein, superficial femoral vein, profunda femoral vein, popliteal vein, and the trifurcation region shows no evidence of deep venous thrombosis. The peroneal vein is not well-visualized. There is no significant popliteal fossa cyst. Left calf edema is noted. IMPRESSION: No DVT demonstrated in the left lower extremity. 09/25/2023 XR/XR ankle LT min 3V FINDINGS: Bony alignment is normal. There is bony demineralization. An orthopedic plate and side screws are applied to the distal left fibula, without fracture line clearly identified. There is a mildly displaced fracture of the posterior malleolus. The ankle mortise is intact. No left ankle joint effusion is seen. There are small posterior and moderately large plantar calcaneal spurs. Again, there is some periosteal thickening of the medial malleolus. There is generalized soft tissue swelling, without gas or foreign body noted. IMPRESSION: 1. There is a intact orthopedic hardware applied to the distal left fibula. The distal left fibular fracture line is now poorly appreciated. 2. A mildly displaced fracture is noted of the posterior malleolus. 3. There are calcaneal spurs. Assessment & Plan Assessment & Plan (1) Leg edema, left: Code(s): R60.0 - Localized edema Category: Medical (2) Chronic post-operative pain: Code(s): G89.28 - Other chronic postprocedural pain Category: Medical (3) Closed fracture of left ankle with delayed healing: Code(s): S82.892G - Other fracture of left lower leg, subsequent encounter for closed fracture with delayed healing Category: Medical Plan Ame presented today office today for evaluation and management of her chronic left ankle pain. Referral placed to vascular surgery to evaluate given patient's significant peripheral edema Gabapentin 100 mg p.o. 3 times daily as needed. Patient advised on cautions for use. Patient has exhausted conservative therapy including NSAIDs, physical therapy, home exercise program, rest, elevation, ice, splinting without improvement of her symptoms Discussed options for treatment including sprint PNS trial. Patient was given a pamphlet. She will follow up in our office after vascular evaluation with plans to proceed with left sciatic nerve (CPN) sprint PNS trial with local anesthetic. All questions and concerns were answered, patient agrees with the plan. Follow up after vascular evaluation, sooner if needed Orders: Referrals Vascular Surgery Referral R60.0 - Localized edema, S82.892G - Other fracture of left lower leg, subsequent encounter for closed fracture with delayed healing Medications: New gabapentin 100 mg PO TID 90 caps 1RF Coding Level of Care Code New Pt Level 4 (53712) Complex EM visit Add On G2211 Diagnoses Leg edema, left R60.0 Chronic post-operative pain G89.28 Closed fracture of left ankle with delayed healing S82.892G
== END 2024-01-01 15:17 | disposition home or self-care (01) ==
PROVIDERS: PCP General Practice; Visit Provider Registered Nurse Emergency
DX: R60.0 Localized edema (principal); G89.28 Other chronic postprocedural pain; S82.892G Other fracture of left lower leg, subsequent encounter for closed fracture with delayed healing
CPT/HCPCS: 99204

== ENCOUNTER → 2024-01-01 14:31 | Outpatient (BNVA) | payer MEDICAID, SELFPAY | PROVIDERS: PCP General Practice; Visit Provider Registered Nurse Emergency | DX: S82.892G Other fracture of left lower leg, subsequent encounter for closed fracture with delayed healing (principal); R60.0 Localized edema; G89.28 Other chronic postprocedural pain; X58.XXXD Exposure to other specified factors, subsequent encounter | CPT/HCPCS: 99212 ==

== ENCOUNTER 2024-10-16 16:12 | Outpatient (REF) | payer MEDICAID, SELFPAY ==
--- NOTE | ~2024-10-16 | MM_ITS ---
EXAMINATION: MM SCREENING DIGITAL BREAST TOMOSYNTHESIS, BILATERAL CLINICAL INFORMATION: Screening. Asymptomatic. COMPARISON: Mammography: Comparison is made with available priors TECHNIQUE: Digital breast mammography with tomosynthesis is performed in both the craniocaudal and mediolateral oblique views along with computer-aided detection (CAD). FINDINGS: There are scattered areas of fibroglandular density (ACR BI-RADS breast composition Category b). Bilateral marker clips. Bilateral dystrophic calcifications are benign and stable. There are no significant masses, abnormal calcifications, or other abnormalities. MM/MM tomosynthesis screening BI IMPRESSION: No mammographic evidence of malignancy. ASSESSMENT: BI-RADS BI-RADS 2 - Benign Findings RECOMMENDATION: Routine annual mammography screening. 1 year F/U This examination should not preclude the clinical evaluation of a suspicious palpable abnormality. This patient's information was entered into a reminder system with a target due date for their next mammogram. Electronically signed by: Cydney Fuentes DO 10/20/2024 11:51 AM EDT
--- OUTSIDE RECORDS SUMMARY | 2024-10-16 16:14 | XMS_ITS | Encounter Summary ---
Author Organization [employer] Address [address] [place] [address] [address] [place] [address] Care Team Providers Care Mobility Manager Name Role Phone Debbie Gentile MD Primary Care Provider [phone] Reason for Referral * Consultation (STAT) - Closed Specialty Diagnoses / Procedures Referred By Contac t Referred To Contact Orthopaedic Surgery Diagnoses Closed fracture of right ankle with routine healing Debbie Gentile MD [address] [place] [address] Phone: tel: fax: [facility] [address] [place] [address] Drive [address] [place], [place] Phone: tel: fax: Referral ID Status Reason Start Date Expiration Date V isits Requested Visits Authorized [id number] Closed Specialty Services Required 04/22/2023 04/21/2024 1 12 Encounter Details Date Type Department Care Team (Late st Contact Info) Description 04/22/2023 Orders Only [facility] MEDICINE [address] [place], [place] [phone] Debbie Gentile MD [address] [place], [place] [phone] Closed fracture of right ankle with routine healing (Primary Dx) Social History Tobacco Use Types Packs/Day Years Used Date Smoking Tobacco: Never Smokeless Tobacco: Never Alcohol Use Standard Drinks/Week Comments Not Currently 0 (1 standard drink = 0.6 oz pur e alcohol) Depression Answer Date Recorded Patient Health Questionnaire-9 Score 4 03/18/2023 Patient Health Questionnaire-9 Score 4 03/18/2023 Last PHQ-9: Questionnaire Data Not on file 0 03/18/2023 Housing Stability Answer Date Recorded What is your housing situation today? I have shailesh barajas 12/24/[address] you li ve. Do you have problems with any of the following? None of the above 12/24/2022 Food Insecurity Answer Date Recorded Within the past 12 months, y ou worried that your food would run out before you got money to buy more: Never True 12/24/2022 Within the past 12 months,th e food you bought just didn't last and you didn't have enough money to get more: Never True 07/2022 Transportation Answer Date Recorded In the past 12 months, has l ack of transportation kept you from medical appts, meetings, work or from getting things needed for daily living? No 12/24/2022 Utilities Answer Date Recorded In the past 12 months, has t he electric, gas, oil or water company threatened to shut off services in your home? No 12/24/2022 Depression Answer Date Recorded Patient Health Questionnaire-2 Score 2 03/18/2023 Comments No Sex and Gender Information Value Date Recorded Sex Assigned at Female 12/18/2021 10:17 AM EDT Legal Sex Female 10:17 AM EDT Gender Identity Female 12/18/2021 10:17 AM EDT Sexual Orientation Straight 02/03/2024 10 :05 AM EST documented as of this encounter Miscellaneous Notes * Assessment & Plan Note - Debbie Gentile MD - 04/22/2023 11:56 AM EST Associated Problem(s): Closed fracture of right ankle with routine healing (Resolved 12/04/2023) Happened in [place], pt has ED notes from there, needs stat referral to [facility] for consideration of surgical management documented in this encounter Plan of Treatment Scheduled Referrals Name Type Priority Associated Diagnoses Order Schedule Referral to Orthopaedic Surgery Outpatient Referral STAT Closed fracture of right ankle with routine healing Expected: 04/22/2023 (Approximate), Expires: 04/21/2024 documented as of this encounter Procedures Procedure Name Priority Date/Time Associated Diagnosis Comments FL GUIDANCE IN OR Routine 05/08/2023 3:0 7 PM EDT XR ANKLE 3+ VIEWS LEFT Routine 04/23/2023 10:17 AM EST documented in this encounter Results * FL Guidance in OR (05/08/2023 3:07 PM EDT) Anatomical Region Laterality Modality X-Ray Angiograph y 05/08/2023 3:07 PM EDT Narrative 05/22/2023 7:59 PM EDT [place] [address] Fluoroscopy Report Signed Patient: Ame Montelongo MR#: [id number] 96 : 1970 Acct:[id number] Age/Sex: 53 / F ADM Date: 05/08/23 Loc: [facility] Attending Dr: Braxton Bragg MD Ordering Physician: Braxton Bragg MD Date of Service: 05/08/23 Procedure(s): FL guidance in OR Accession Number(s): [id number] cc: Braxton Bragg MD; Debbie Gentile EXAMINATION: XR FLUOROSCOPY WITH IMAGES CLINICAL INFORMATION: History of left ankle fracture. COMPARISON: Prior radiographs, most recently 04/23/2023. TECHNIQUE: Fluoroscopy Supervised By: Dr. Braxton Bragg. Fluoroscopy Time: 0.0. Cumulative Dose: 0.147 mGy. DAP: 0.71469 mGym2. Images: 2. FINDINGS: The submitted images show a fixator plate and fixator screws applied to the distal left fibula. The fracture is in good alignment. A further slightly displaced fracture is noted of the posterior malleolus, in improved alignment. FL/FL guidance in OR IMPRESSION: Intraoperative fluoroscopic guidance is provided during ORIF of a distal left fibular fracture. Please see the patient's Operative Report for full procedural details. Dictated By: Danish Ellis MD Signed By: <Electronically signed by Danish Ellis MD in OV> 05/22/231954 DD/ 1507 TD/TT: Rn Private Duty: [facility] Procedure Note Donotuseinterpreter, Image - 05/22/[address] [address] Fluoroscopy Report Signed Patient: Ame Montelongo MMR#: [id number] 96 : 1970Acct:[id number] Age/Sex: 53 / FADM Date: 05/08/23 Loc: HO.[facility] Attending Dr: Braxton Bragg MD Ordering Physician: Braxton Bragg MD Date of Service: 05/08/23 Procedure(s): FL guidance in OR Accession Number(s): [id number] cc: Braxton Bragg MD; Debbie Gentile EXAMINATION: XR FLUOROSCOPY WITH IMAGES CLINICAL INFORMATION: History of left ankle fracture. COMPARISON: Prior radiographs, most recently 04/23/2023. TECHNIQUE: Fluoroscopy Supervised By: Dr. Braxton Bragg. Fluoroscopy Time: 0.0. Cumulative Dose: 0.147 mGy. DAP: 0.66247 mGym2. Images: 2. FINDINGS: The submitted images show a fixator plate and fixator screws applied to the distal left fibula. The fracture is in good alignment. A further slightly displaced fracture is noted of the posterior malleolus, in improved alignment. FL/FL guidance in OR IMPRESSION: Intraoperative fluoroscopic guidance is provided during ORIF of a distal left fibular fracture. Please see the patient's Operative Report for full procedural details. Dictated By: Danish Ellis MD Signed By: <Electronically signed by Danish Ellis MD in OV> 05/22/231954 DD/ 1507 TD/TT: Rn Private Duty: [facility] us [facility] External Provider IMG IR PROCEDURES Edited Result - Final * XR Ankle 3+ Views Left (04/23/2023 10:17 AM EST) Anatomical Region Laterality Modality Lower Extremities, Ankle Left Radiogr aphic Imaging 04/23/2023 10:1 7 AM EST Narrative 04/25/2023 6:51 PM EST [facility] [address] [place] [address] XRay Report Signed Patient: Ame Montelongo MR#: [id number] [birth year] : 1970 Acct:[id number] Age/Sex: 53 / F ADM Date: 04/23/23 Loc: HO.[facility] Attending Dr: Braxton Bragg MD Ordering Physician: Braxton Bragg MD Date of Service: 04/23/23 Procedure(s): XR ankle LT min 3V Accession Number(s): [id number] cc: Braxton Bragg MD; Debbie Gentile EXAMINATION: XR ANKLE, LEFT CLINICAL INFORMATION: Pain COMPARISON: Left foot radiographs 07/06/2022 TECHNIQUE: AP, lateral, and mortise views of the left ankle. FINDINGS: Overlying splinting material obscures fine osseus detail. Obliquely oriented mildly displaced fracture of the distal fibular diaphysis and mildly displaced posterior malleolus fracture with anterior dislocation of the distal tibia with respect to the talar dome. No definite medial malleolus fracture although as detailed above exam is limited by overlying material, and repeat radiographs could be considered. Widening of the medial clear space suggesting ligamentous injury. Small tibiotalar joint effusion. Overlying soft tissue swelling. Plantar calcaneal spurring and Achilles tendon enthesopathy. XR/XR ankle LT min 3V IMPRESSION: 1. Obliquely oriented mildly displaced fracture of the distal fibular diaphysis and mildly displaced posterior malleolus fracture with anterior dislocation of the distal tibia with respect to the talar dome. No definite medial malleolus fracture although as detailed above exam is limited by overlying material, and repeat radiographs could be considered. 2. Widening of the medial clear space suggesting ligamentous injury. 3. Small tibiotalar joint effusion. Overlying soft tissue swelling. Dictated By: Ni Garland MD Signed By: <Electronically signed by Ni Garlnad MD in OV> 04/25/23 1848 DD/ 1017 TD/TT: Rn Private Duty: Procedure Note Estefaniater, Image - 04/25/2023 [facility] [address] [place] [address] [address] [place] [address] XRay Report Signed Patient: Ame Montelongo MMR#: [id number] 96 : 1970Acct:[id number] Age/Sex: 53 / FADM Date: 04/23/23 Loc: HO.[facility] Attending Dr: Braxton Bragg MD Ordering Physician: Braxton Bragg MD Date of Service: 04/23/23 Procedure(s): XR ankle LT min 3V Accession Number(s): [id number] cc: Braxton Bragg MD; Debbie Gentile EXAMINATION: XR ANKLE, LEFT CLINICAL INFORMATION: Pain COMPARISON: Left foot radiographs 07/06/2022 TECHNIQUE: AP, lateral, and mortise views of the left ankle. FINDINGS: Overlying splinting material obscures fine osseus detail. Obliquely oriented mildly displaced fracture of the distal fibular diaphysis and mildly displaced posterior malleolus fracture with anterior dislocation of the distal tibia with respect to the talar dome. No definite medial malleolus fracture although as detailed above exam is limited by overlying material, and repeat radiographs could be considered. Widening of the medial clear space suggesting ligamentous injury. Small tibiotalar joint effusion. Overlying soft tissue swelling. Plantar calcaneal spurring and Achilles tendon enthesopathy. XR/XR ankle LT min 3V IMPRESSION: 1. Obliquely oriented mildly displaced fracture of the distal fibular diaphysis and mildly displaced posterior malleolus fracture with anterior dislocation of the distal tibia with respect to the talar dome. No definite medial malleolus fracture although as detailed above exam is limited by overlying material, and repeat radiographs could be considered. 2. Widening of the medial clear space suggesting ligamentous injury. 3. Small tibiotalar joint effusion. Overlying soft tissue swelling. Dictated By: Ni Garland MD Signed By: <Electronically signed by Ni Garland MD in OV> 04/25/23 1848 DD/ 1017 TD/TT: Rn Private Duty: [facility] External Provider IMG XR PROCEDURES Final Result documented in this encounter Visit Diagnoses Diagnosis Closed fracture of right ankle with routine healing- Primary documented in this encounter Additional Health Concerns Assessment Noted Time PHQ-9 Depression Total Score: 4 03/18/19 24 3:50 PM EST documented as of this encounter Care Teams Mobility Manager Relationship Specialty Start Date End Date Debbie Gentile MD [address] [place] [id number] PCP - General Family Medicine 11/02/19 documented as of this encounter
--- OUTSIDE RECORDS SUMMARY | 2024-10-16 16:14 | XMS_ITS | Encounter Summary ---
Author Organization [employer] Address [address] [facility] [address] [place] [address] Care Team Providers Care Solder Deposit Operator Name Role Phone Debbie Gentile MD Primary Care Provider [phone] Encounter Details Date Type Department Care Team (Late st Contact Info) Description 07/03/2024 Orders Only [facility] [address] [place], [place] [phone] Debibe Gentile MD [address] [place], [place] [phone] Social History Tobacco Use Types Packs/Day Years Used Date Smoking Tobacco: Never Passive Smoke Exposure: Never Smokeless Tobacco: Never Alcohol Use Standard Drinks/Week Comments Not Currently 0 (1 standard drink = 0.6 oz pur e alcohol) Depression Answer Date Recorded Patient Health Questionnaire-9 Score 1 07/29/2023 Patient Health Questionnaire-9 Score 1 07/29/2023 Last PHQ-9: Questionnaire Data Not on file 0 07/29/2023 Housing Stability Answer Date Recorded What is your housing situation today? I have shailesh barajas 07/19/[address] you li ve. Do you have problems with any of the following? None of the above 07/19/2023 Food Insecurity Answer Date Recorded Within the past 12 months, y ou worried that your food would run out before you got money to buy more: Never True 07/19/2023 Within the past 12 months,th e food you bought just didn't last and you didn't have enough money to get more: Never True Transportation Answer Date Recorded In the past 12 months, has l ack of transportation kept you from medical appts, meetings, work or from getting things needed for daily living? No 07/19/2023 Utilities Answer Date Recorded In the past 12 months, has t he electric, gas, oil or water company threatened to shut off services in your home? No 07/19/2023 Depression Answer Date Recorded Patient Health Questionnaire-2 Score 1 07/29/2023 Comments No Sex and Gender Information Value Date Recorded Sex Assigned at Female 12/18/2021 10:17 AM EDT Legal Sex Female 10:17 AM EDT Gender Identity Female 12/18/2021 10:17 AM EDT Sexual Orientation Straight 02/03/2024 10 :05 AM EST documented as of this encounter Plan of Treatment Not on file documented as of this encounter Visit Diagnoses Not on filedocumented in this encounter Additional Health Concerns Assessment Noted Time PHQ-9 Depression Total Score: 1 07/29/19 24 1:31 PM EDT documented as of this encounter Care Teams Solder Deposit Operator Relationship Specialty Start Date End Date Debbie Gentile MD [address] [place] [id number] PCP - General Family Medicine 11/02/19 documented as of this encounter
--- OUTSIDE RECORDS SUMMARY | 2024-10-16 16:14 | XMS_ITS | Encounter Summary ---
Author Organization [employer] Address [address] [place] [address] [address] [place] [address] Care Team Providers Care Application Security Architect Name Role Phone Debbie Gentile MD Primary Care Provider Reason for Visit * Reason Comments Med Change Request Encounter Details Date Type Department Care Team ([facility] Contact Info) Description 04/12/2023 Refill [facility] [address] [place], [place] [phone] Magaly Mora FNP [address] [place] [address] Weight loss counseling, encounter for Social History Tobacco Use Types Packs/Day Years [...] documented as of this encounter Visit Diagnoses Diagnosis Weight loss counseling, encounter for documented in this encounter Additional Health Concerns Assessment Noted Time PHQ-9 Depression Total Score: 4 03/18/19 24 3:50 PM EST documented as of this encounter Care Teams Application Security Architect Relationship Specialty Start Date End Date Debbie Gentile MD [address] [place] [address] PCP - General Family Medicine 11/02/19 documented as of this encounter
--- OUTSIDE RECORDS SUMMARY | 2024-10-16 16:14 | XMS_ITS | Clinical Summary ---
Author Organization [employer] Address [address] [facility] 7[address] [place] [address] Care Team Providers Care Certified Energy Manager Name Role Phone Debbie Gentile MD Primary Care Provider [phone] Allergies Active Allergy Reactions Criticality Noted Date Comments Aspirin Swelling 04/28/2010 Lisinopril 05/18/2019 cough Penicillin V Rash Low 04/28/2010 Medications Blood Pressure kit 1 each Once per day. 1 kit 5 Active levothyroxine (Synthroid) 75 MCG tabletIndications:O ther specified hypothyroidism Take 1 tablet (75 mcg) by mouth before breakfast. 90 tablet 3 5 09/15/19 26 Active Active Problems Problem Noted Date Diagnosed Date Bariatric surgery status 04/15/2024 Bronchitis with acute wheezing 02/04/2024 Assessment & Plan (02/04/2024 4:05 PM EST): Rx Z-pack Rest (sleep at least 8 hours a night). Hydrate with plenty of water (avoid caffeine and alcohol). Use saline nose drops to loosen mucus Take Albuterol inh tid x 1w then prin Take Acetaminophen (Tylenol )/Ibuprofen as needed to reduce fever, headache, body aches or discomfort Gargle with salt water and use throat sprays/lozenges for throat pain. Use heated, humidified air. If you do not have a humidifier, take hot showers. Cover coughs and sneezes using the crook of your elbow. 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, able to ambulate without assistance and carry up to 30 pounds She will start with four children on Feb 19, 2024 Trigger ring finger of left hand 11/28/2023 Perimenopausal vasomotor symptoms 03/18/2023 Assessment & Plan (07/30/2023 2:08 PM EDT): Manage symptomatically for now, she does not want to use Paxil or vaginal estrogen while she is focused on taking care of her ankle Assessment & Plan (03/18/2023 4:05 PM EST): Increase Paxil to 20 mg Other specified hypothyroidism 03/18/2023 Assessment & Plan (07/30/2023 2:07 PM EDT): To take Synthroid 75mcg daily consistently for 12 weeks and then recheck TSH Assessment & Plan (03/18/2023 4:05 PM EST): Increase Synthroid to 75mcg daily (last TSH 6.03 12/2022) Bilateral foot pain 07/09/2022 Elevated LFTs 05/18/2022 Assessment & Plan (07/30/2023 2:05 PM EDT): Downtrending, now 2x ULN Abd ultrasound showed fatty liver Avoid Tylenol and alcohol Continue to monitor Assessment & Plan (07/09/2022 11:57 AM EDT): Stable, 3-4 ULN Ultrasound showed fatty liver Avoid Tylenol and alcohol Continue to monitor Venous insufficiency of leg 08/25/2021 Obesity 11/02/2019 Assessment & Plan (07/30/2023 2:09 PM EDT): Trialed Buproprion for weight loss, could not tolerate the side effects, so she stopped it quickly Will continue to work with [facility] and Dr. Gonzalez after her ankle is healed to qualify for bariatric surgery Assessment & Plan (03/18/2023 4:06 PM EST): If A1C > 6.4, start Metformin/Trulicity If < 6.4, start Naltrexone/Burpoprion Tension-type headache 11/02/2019 Vitamin D deficiency 09/13/2019 Migraines 09/13/2019 Adrenal adenoma 09/13/2019 Low back pain at multiple sites 09/13/2019 Overview (02/13/2024): Herniated disc L4-5 H/O cold sores 09/13/2019 Essential hypertension 01/04/2016 Assessment & Plan (02/16/2024 8:49 AM EST): Continue Losartan/HCTZ 100/25 daily Recent labs: A1C 6.0 Cr 0.57, eGFR > 90 ASCVD Risk: The 10-year ASCVD risk score (Nevaeh HART, et al., 2019) is: 2.2% Values used to calculate the score: Age: 53 years Sex: Female Is Non- : No Diabetic: No Tobacco smoker: No Systolic Blood Pressure: 137 mmHg Is BP treated: Yes HDL Cholesterol: 46 mg/dL Total Cholesterol: 137 mg/dL No statin is indicated EKG: Obtain baseline at f/u - Aerobic exercise to reduce BP. Initial goal of 30 min walk 3-5x/week. Increase as tolerated. - low-sodium diet (goal: <2g/day) and heart healthy diet such as DASH to reduce BP and prevent ASCVD. - Home BP monitoring 1-2 x day with goal of <140/90. - Seek immediate medical attention for chest pain, palpitations, SOB, syncope, or sudden changes in mental status. - Do not change or discontinue current prescriptions without first consulting health care provider Assessment & Plan (07/30/2023 2:05 PM EDT): Continue Losartan/HCTZ 100/25, to be more regular about taking it, given recent injury and more sedentary life Recent labs: A1C 6.4 Cr 0.57, eGFR > 90 ASCVD Risk: The 10-year ASCVD risk score (Nevaeh HART, et al., 2019) is: 2.4% Values used to calculate the score: Age: 53 years Sex: Female Is Non- : No Diabetic: No Tobacco smoker: No Systolic Blood Pressure: 144 mmHg Is BP treated: Yes HDL Cholesterol: 46 mg/dL Total Cholesterol: 137 mg/dL No statin is indicated EKG: Obtain baseline at f/u - Aerobic exercise to reduce BP. Initial goal of 30 min walk 3-5x/week. Increase as tolerated. - low-sodium diet (goal: <2g/day) and heart healthy diet such as DASH to reduce BP and prevent ASCVD. - Home BP monitoring 1-2 x day with goal of <140/90. - Seek immediate medical attention for chest pain, palpitations, SOB, syncope, or sudden changes in mental status. 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 Resolved Problems Problem Noted Date Diagnosed Date Resolved Date Closed fracture of right ank le with routine healing 04/22/2023 12/04/2023 Assessment & Plan (07/30/2023 2:06 PM EDT): Happened in [place] Apr 18, 2023 Continue post-operative care for PT and monitoring of healing at [facility] Ortho will continue to fill her FMLA as well Assessment & Plan (04/22/2023 11:56 AM EST): Happened in [place], pt has ED notes from there, needs stat referral to [facility] for consideration of surgical management COVID-19 06/23/2019 01/13/2024 Encounters Date Type Department Care Team Description 09/09/2024 4:00 PM EDT Office Visit [facility] [address] [place] [address] Debbie Gentile MD Other specified hypothyroidism (Primary Dx); Dietary counseling; Exercise counseling; Class 2 severe obesity with serious comorbidity in adult, unspecified BMI, unspecified obesity type (CMS/HCC); Closed fracture dislocation of left ankle with delayed healing 09/09/2024 Travel 09/08/2024 Travel 09/08/2024 Telephone [facility] [address] [place] [address] Debbie Gentile MD chart prep 09/01/2024 Patient Outreach [facility] [address] [place] [address] Debbie Gentile MD Pre-visit Planning (SDOH screening negative and tobacco screening negative) from Last 3 Months Immunizations Immunization Administration Dates Next Due Hep B, adult 06/21/2011,01/20/2010,03/24/2009 Influenza injectable quadriv alent IIV4 with preservative 01/04/2016 Influenza injectable quadriv alent preservative free 01/22/2020 Influenza, IIV3, injectable 03/12/2014, 0 Influenza, seasonal, injecta ble, preservative free 02/14/2012 MMR 06/21/2011,11/29/2004 TD (adult), 2 Lf tetanus tox oid, preservative free, adsorbed 03/25/2009 Tdap 01/04/2016 Family History Medical History Relation Name Comments Breast cancer Father's Sister 1 Lung cancer Father's Sister 2 Lung cancer Father's Sister 3 Vaginal cancer Father's Sister 4 Relation Name Status Comments Father's Sister 1 Father's Sister 2 Father's Sister 3 Father's Sister 4 Social History Tobacco Use Types Packs/Day Years Used Date Smoking Tobacco: Never Passive Smoke Exposure: Never Smokeless Tobacco: Never Tobacco Cessation:Counseling Given: Not Answered Alcohol Use Standard Drinks/Week Comments Not Currently 0 (1 standard drink = 0.6 oz pur e alcohol) Depression Answer Date Recorded Patient Health Questionnaire-9 Score 2 09/09/2024 Patient Health Questionnaire-9 Score 2 09/09/2024 Last PHQ-9: Questionnaire Data Not on file 0 09/09/2024 Housing Stability Answer Date Recorded What is your housing situation today? I have shailesh barajas 09/01/[address] you li ve. Do you have problems with any of the following? None of the above 09/01/2024 Food Insecurity Answer Date Recorded Within the past 12 months, y ou worried that your food would run out before you got money to buy more: Never True 09/01/2024 Within the past 12 months,th e food you bought just didn't last and you didn't have enough money to get more: Never True Transportation Answer Date Recorded In the past 12 months, has l ack of transportation kept you from medical appts, meetings, work or from getting things needed for daily living? No 09/01/2024 Utilities Answer Date Recorded In the past 12 months, has t he electric, gas, oil or water company threatened to shut off services in your home? No 09/01/2024 Depression Answer Date Recorded Patient Health Questionnaire-2 Score 0 09/09/2024 Internet Access Answer Date Recorded Internet Access Q1 Yes 09/01/2024 Internet Access Q2 Not on file 09/01/2024 Comments No Sex and Gender Information Value Date Recorded Sex Assigned at Female 12/18/2021 10:17 AM EDT Legal Sex Female 10:17 AM EDT Gender Identity Female 12/18/2021 10:17 AM EDT Sexual Orientation Straight 02/03/2024 10 :05 AM EST Last Filed Vital Signs Vital Sign Reading Time Taken Comments Blood Pressure 138/80 09/09/2024 4:03 PM EDT Pulse 84 09/09/2024 4:03 PM EDT Temperature 36.5 C (97.7 F) 09/09/2024 4:03 PM EDT Respiratory Rate 20 09/09/2024 4:03 PM EDT Oxygen Saturation 98% 06/23/2024 4:00 PM EDT Inhaled Oxygen Concentration - - Weight 91.3 kg (201 lb 3.2 oz) 09/09/2024 4:03 P M EDT Height 162.6 cm (5' 4 ) 09/09/2024 4:03 PM EDT Body Mass Index 34.54 09/09/2024 4:03 PM EDT Plan of Treatment Health Maintenance Due Date Last Done Comments CT Colonography 1969 FIT DNA/Cologuard 1969 FIT 1970 FOBT 1970 HIV Screening 1970 Sigmoidoscopy 1970 Pneumococcal Vaccine: 50+ Years (1 of 1 - PCV) 2019 Zoster Vaccines (1 of 2) 2019 HPV/Cotest 01/23/2020 Pap Smear 01/23/2020 01/22/2020 COVID-19 Vaccine ( season) 2023 06/29/2020, 06/01/2020 Mammogram 06/16/2024 06/17/2023, 05/20, 06/11/2022, Additional history exists Influenza Vaccine (#1) 2024 , 01/04/2016, 03/12/2014, Additional history exists Cervical Cancer Screening 01/18/2025 Po stponed from 01/23/2020 (Other Medical Reasons) SDOH Screening 09/01/2025 09/01/2024 Alcohol/Substance Use Screening 09/09/2025 09/09/2024 Depression Screening 09/09/2025 09/09/2024, 09/10/19 25 Disability Screening 09/09/2025 09/09/2024 Tobacco Screening 09/09/2025 09/09/2024 DTaP/Tdap/Td Vaccines (2 - Td or Tdap) 01/03/2026 01/04/2016, 03/25/2009 Lipid Panel 07/28/2028 07/29/2023, 07/06/2022 Colonoscopy 07/19/2032 07/19/2022 Colorectal Cancer Screening 07/19/2032 RSV Patients and Patients Aged 60 years or older (1 - 1-dose 75+ series) 2044 Hepatitis B Vaccines Completed 06/21/2011, 01/20/2010, 03/24/2009 Hepatitis C Screening Completed 11/15/2021 HIB Vaccines Aged Out No longer eligi ble based on patient's age to complete this topic HPV Vaccines Aged Out No longer eligi ble based on patient's age to complete this topic Hepatitis A Vaccines Aged Out No long er eligible based on patient's age to complete this topic IPV Vaccines Aged Out No longer eligi ble based on patient's age to complete this topic Meningococcal B Vaccine Aged Out No l onger eligible based on patient's age to complete this topic Meningococcal Vaccine Aged Out No neeru raza eligible based on patient's age to complete this topic RSV under 20 months Aged Out No longe r eligible based on patient's age to complete this topic Rotavirus Vaccines Aged Out No longer eligible based on patient's age to complete this topic Procedures Procedure Name Priority Date/Time Associated Diagnosis Comments LIPID PANEL, STANDARD Routine 07/29/2023 2:07 PM EDT Essential hypertension BI MAMMOGRAM SCREENING TOMOSYNTHESIS BILATERAL Routine 06/17/2023 3:57 PM EDT HM COLONOSCOPY Routine 07/19/2022 ZZZ HISTORICAL HEPATITIS C AB W/REFL TO HCV RNA, QN, PCR Routine 11/15/2021 3:50 PM EDT THINPREP PAP Routine 01/22/2020 12:00 AM EST from Last 3 Months or Most Recently Relevant to Health Maintenance Results * Lipid Panel, Standard (07/29/2023 2:07 PM EDT) Triglycerides 131 <150 mg/dL [facility] Comment:Desirable Triglyceri de: less than 150 mg/dLBorderline High Triglyceride 150-199 mg/dLHigh Triglyceride: 200-499 mg/dLVery High Triglyceride: greater than or equal to 5OO mg/dL Cholesterol 137 <200 mg/dL [facility] Comment:Desirable Cholestero l: less than 200 mg/dLBorderline High Cholesterol: 200-239 mg/dLHigh Cholesterol: greater than 239 mg/dL LDL Cholesterol Calculated 65 <100 mg/dL [facility] Comment:Desirable LDL: less than 100 mg/dLNear Optimal/Above Optimal LDL: 110- 129 mg/dLBorderline High LDL: 130-159 mg/dLHigh LDL: 160-189 mg/dLVery High LDL: greater than or equal to 190 mg/dL HDL Cholesterol 46 >40 mg/dL [facility] Comment:Desirable HDL: great er than 40 mg/dL Note: This HDL assay may give artificially low results in patients with liver disease. Blood Venous blood specimen / Unknown 07/29/2023 2:07 PM EDT 07/29/2023 3:47 PM EDT us Debbie Gentile MD LAB BLOOD ORDERABLES Final Res ult [facility] [address] [place] [address] [phone] * BI Mammogram Screening Tomosynthesis Bilateral (06/17/2023 3:57 PM EDT) Anatomical Region Laterality Modality Breast Bilateral Mammography 06/17/2023 3:57 PM EDT Narrative 07/14/2023 6:27 AM EDT [facility] [address] [place] [address] Mammography Report Signed Patient: Ame Montelongo MR#: [id number] 96 : 1970 Acct:[id number] Age/Sex: 53 / F ADM Date: 06/17/23 Loc: HO.MAMMO Attending Dr: Debbie Gentile MD Ordering Physician: Debbie Gentile Results: 2Benign F indings Date of Service: 06/17/23 Follow Up: 1 Year From [facility] Mammogram Procedure(s): MM tomosynthesis screening BI Accession Number(s): [id number] cc: Debbie Gentile EXAMINATION: MM SCREENING DIGITAL BREAST TOMOSYNTHESIS, BILATERAL CLINICAL INFORMATION: Screening. Asymptomatic. COMPARISON: Mammography: This study is compared with prior exams dating back to 2015. TECHNIQUE: Digital breast tomosynthesis is performed in both the craniocaudal and mediolateral oblique views along with computer-aided detection (CAD). Synthesized 2D images are generated from the tomosynthesis. FINDINGS: There are scattered areas of fibroglandular density (ACR BI-RADS breast composition Category b). There are no significant masses, abnormal calcifications, or other abnormalities. There is a tissue marker in each breast from prior benign percutaneous biopsies. There are few, bilateral, benign calcifications in each breast. MM/MM tomosynthesis screening BI IMPRESSION: No mammographic evidence of malignancy. ASSESSMENT: BI-RADS BI-RADS 2 - Benign Findings RECOMMENDATION: Routine annual mammography screening. 1 year F/U This examination should not preclude the clinical evaluation of a suspicious palpable abnormality. This patient's information was entered into a reminder system with a target due date for their next mammogram. Dictated By: Odalis Rehman MD Signed By: <Electronically signed by Odalis Rehman MD in OV> 07/14/23623 DD/ 1557 TD/TT: Infrastructure Developer: Procedure Note Donotuseinterpreter, Image - 07/14/2023 [facility] [address] [place], [place] [address] Mammography Report Signed Patient: Ame Montelongo [facility]#: [id number] 96 : 1970Acct:[id number] Age/Sex: 53 / FADM Date: 06/17/23 Loc: [facility] Attending Dr: Debbie Gentile MD Ordering Physician: Maryann Gentileults: 2Benign F indings Date of Service: 06/17/23Follow Up: 1 Year From Orig ina Mammogram Procedure(s): MM tomosynthesis screening BI Accession Number(s): [id number] cc: Debbie Gentile EXAMINATION: MM SCREENING DIGITAL BREAST TOMOSYNTHESIS, BILATERAL CLINICAL INFORMATION: Screening. Asymptomatic. COMPARISON: Mammography: This study is compared with prior exams dating back to 2015. TECHNIQUE: Digital breast tomosynthesis is performed in both the craniocaudal and mediolateral oblique views along with computer-aided detection (CAD). Synthesized 2D images are generated from the tomosynthesis. FINDINGS: There are scattered areas of fibroglandular density (ACR BI-RADS breast composition Category b). There are no significant masses, abnormal calcifications, or other abnormalities. There is a tissue marker in each breast from prior benign percutaneous biopsies. There are few, bilateral, benign calcifications in each breast. MM/MM tomosynthesis screening BI IMPRESSION: No mammographic evidence of malignancy. ASSESSMENT: BI-RADS BI-RADS 2 - Benign Findings RECOMMENDATION: Routine annual mammography screening. 1 year F/U This examination should not preclude the clinical evaluation of a suspicious palpable abnormality. This patient's information was entered into a reminder system with a target due date for their next mammogram. Dictated By: Odalis Rehman MD Signed By: <Electronically signed by Odalis Rehman MD in OV> 07/14/23623 DD/ 1557 TD/TT: Infrastructure Developer: Debbie Gentile MD IMG BI PROCEDURES Final Result * Hm Colonoscopy (07/19/2022) [facility] Colonoscopy Normal Normal Narrative Rosemary Miramontes - 07/19/2022 Recommended 10 year follow up see external hospital admission note on Result [facility] Historical Provider MD HEALTH MAINTENANCE Final Result * HEPATITIS C AB W/REFL TO HCV RNA, QN, PCR (11/15/2021 3:50 PM EDT) [facility] HEPATITIS C ANTIBODY NON-REACTI VE NON-REACT DARON [facility] INDEX 0.18 <1.00 [facility] Comment: HCV antibody was non-reactive. There is no laboratory evidence of HCV infection. In most cases, no further action is required. However, if recent HCV exposure is suspected, a test for HCV RNA (test code 60400) is suggested. For additional information please refer to http://education.Signicat/faq/QMI82q2 (This link is being provided for informational/ educational purposes only.) 11/15/2021 3:50 PM EDT Result [facility] Stephanie Koehler MD HISTORICAL/NON ORDERABLE L ABS Final Result [facility] * THINPREP PAP (01/22/2020 12:00 AM EST) [facility] Clinical Information: None given [facility] COMMENT SEE COMMENT [facility] Comment: EXPLANATORY NOTE: The Pap is a screening test for cervical cancer. It is not a diagnostic test and is subject to false negative and false positive results. It is most reliable when a satisfactory sample, regularly obtained, is submitted with relevant clinical findings and history, and when the Pap result is evaluated along with historic and current clinical information. Storage Garage Manager : SEE COMMENT [facility] Comment: CMG, CT(ASCP) CT screening location: [place] [address] Infection Shift in vaginal soy suggestive of bacterial vaginosis. [facility] Interpretation/R esult: Negative for intraepithelial lesion or malignancy. [facility] LMP: NONE [facility]IV[facility] Prev. BX: NONE [facility]IV[facility] Prev. PAP: NONE [facility]IVEN [facility] Review Storage Garage Manager : SEE COMMENT [facility] Comment: DMM CT(ASCP) CT screening location: [place] [address] SOURCE: None given [facility] Statement Of Adequacy: SEE COMMENT [facility] Comment: Satisfactory for evaluation. Endocervical/transformation zone component present. Age and/or menstrual status not provided 01/22/2020 Debbie Gentile MD LAB PATHOLOGY ORDERABLES Final Result [facility] [address] [place] [address], from Last 3 Months or Most Recently Relevant to Health Maintenance [place] [address] [place] [address] C3 N FULL Care Teams Certified Energy Manager Relationship Specialty Start Date End Date Debbie Gentile MD [address] [place] [id number] PCP - General Family Medicine 11/02/19
--- OUTSIDE RECORDS SUMMARY | 2024-10-16 16:14 | XMS_ITS | Encounter Summary ---
Author Organization [employer] Address [address] [facility] [address] [place] [address] Care Team Providers Care Mathematics Professor Name Role Phone Debbie Gentile MD Primary Care Provider [phone] Encounter Details Date Type Department Care Team (Late st Contact Info) Description 03/22/[address] [facility] [address] [place], [place] [phone] Debbie Gentile MD [address] [place], [place] [phone] Weight loss counseling, encounter for (Primary Dx) Social History Tobacco Use Types [...] Visit Diagnoses Diagnosis Weight loss counseling, encounter for- Primary documented in this encounter Additional Health Concerns Assessment Noted Time PHQ-9 Depression Total Score: 4 03/18/19 24 3:50 PM EST documented as of this encounter Care Teams Mathematics Professor Relationship Specialty Start Date End Date Debbie Gentile MD [address] [place] [phone] PCP - General Family Medicine 11/02/19 documented as of this encounter
--- OUTSIDE RECORDS SUMMARY | 2024-10-16 16:14 | XMS_ITS | Encounter Summary ---
Author Organization [employer] Address [address] [place] [address] [address] [place] [address] Care Team Providers Care Mounter [employer] Name Role Phone Debbie Gentile MD Primary Care Provider [phone] Encounter Details Date Type Department Care Team (Late st Contact Info) Description 03/09/2022 Telephone [facility] [address] [place], [place] [phone] Debbie Gentile MD [address] [place], [place] [phone] Social History Tobacco Use Types Packs/Day Years Used Date Smoking Tobacco: Never Assessed Comments Unknown Sex and Gender Information Value Date Recorded Sex Assigned at Female 12/18/2021 10:17 AM EDT Legal Sex Female 10:17 AM EDT Gender Identity Female 12/18/2021 10:17 AM EDT Sexual Orientation Straight 02/03/2024 10 :05 AM EST documented as of this encounter Plan of Treatment Not on file documented as of this encounter Visit Diagnoses Not on filedocumented in this encounter Care Teams [employer]ounter [employer] Relationship Specialty Start Date End Date Debbie Gentile MD [address] [place] [address] PCP - General Family Medicine 11/02/19 documented as of this encounter
--- OUTSIDE RECORDS SUMMARY | 2024-10-16 16:14 | XMS_ITS | Encounter Summary ---
Author Organization [employer] Address [address] [facility] [address] [place] [address] Care Team Providers Care Reinforcing Steel Placer Name Role Phone Debbie Gentile MD Primary Care Provider [phone] Encounter Details Date Type Department Care Team (Late st Contact Info) Description 01/13/2024 Orders Only [facility] [address] [place], [place] [phone] Debbie Gentile MD [address] [place], [place] [phone] Social History Tobacco Use Types Packs/Day Years [...] documented as of this encounter Care Teams Reinforcing Steel Placer Relationship Specialty Start Date End Date Debbie Gentile MD [address] [place] [id number] PCP - General Family Medicine 11/02/19 documented as of this encounter
--- OUTSIDE RECORDS SUMMARY | 2024-10-16 16:14 | XMS_ITS | Encounter Summary ---
Author Organization [employer] Address [address] [place] [address] 7t [place] [address] Care Team Providers Care Orthopedic Mechanic Name Role Phone Debbie Gentile MD Primary Care Provider [phone] Reason for Visit * Reason Comments Med Change Request Encounter Details Date Type Department Care Team ([facility] Contact Info) Description 04/10/2023 Refill [facility] [address] [place], [place] [phone] Magaly Mora FNP [address] [place] [address] Weight loss counseling, encounter for Social History [...] documented as of this encounter Care Teams Orthopedic Mechanic Relationship Specialty Start Date End Date Debbie Gentile MD [address] [place] [address] PCP - General Family Medicine 11/02/19 documented as of this encounter
--- OUTSIDE RECORDS SUMMARY | 2024-10-16 16:14 | XMS_ITS | Clinical Summary ---
Author Organization [facility] Address [address] [place] [address] Phone Care Team Providers Care Wellness Program Administrator Name Role Phone Debbie Gentile MD Primary Care Provider [phone] Allergies Active Allergy Reactions Criticality Noted Date Comments Aspirin Anaphylaxis High 05/18/2019 Lisinopril Cough High 05/18/2019 cough Penicillins Rash 05/18/2019 Medications losartan-hydro CHLOROthiazide (HYZAAR) 50-12.5 mg per tablet Take 1 tablet by mouth 1 (one) time each day. Active levothyroxine (SYNTHROID, LEVOTHROID) 75 mcg tablet Take by mouth 1 (one) time each day before breakfast. Active acetaminophen (TYLENOL) 500 mg tablet Take 2 tablets (1,000 mg total) by mouth every 8 (eight) hours. 180 tablet 03/24/19 25 Active simethicone (MYLICON) 80 mg chewable tablet Chew 1 tablet (80 mg total) every 6 (six) hours if needed for flatulence. 120 tablet 03/24/19 25 Active wheat dextrin 3 gram/3.5 gram powder in packet Take 1 packet by mouth 1 (one) time each day. 30 packet 03/24/19 25 Active oxyCODONE (ROXICODONE) 5 mg immediate release tablet Take 1 tablet (5 mg total) by mouth every 4 (four) hours if needed for moderate pain. Max Daily Amount: 30 mg 10 tablet 04/02/19 25 Active Transderm-Scop 1 mg over 3 days patch 3 day APPLY 1 PATCH TOPICALLY EVERY 3RD DAY. 3 patch 05/12/19 25 Active pantoprazole (PROTONIX) 40 mg EC tablet TAKE 1 TABLET BY MOUTH EVERY DAY BEFORE BREAKFAST DO NOT CRUSH CHEW OR SPLIT 90 tablet 10/02/19 25 Active ursodioL (ACTIGALL) 300 mg capsule Take 1 capsule (300 mg total) by mouth 2 (two) times a day. 60 each 5 03/24/19 25 025 pantoprazole (PROTONIX) 40 mg EC tablet TAKE 1 TABLET BY MOUTH EVERY DAY BEFORE BREAKFAST DO NOT CRUSH CHEW OR SPLIT 90 tablet 06/25/19 25 025 Discontinued Hospital, Clinic, or Other Facility Administered Medication Ordered Dose Route Frequency Start Date End Date Status prochlorperazine (COMPAZINE) tablet 5 mgIndications:Bariatr ic surgery status 5 mg oral Every 8 hours PRN 05/12/2024 Active Active Problems Problem Noted Date Diagnosed Date Bariatric surgery status 04/15/2024 Morbid (severe) obesity due to excess calories ([facility] V24, [facility] V28) 02/05/2024 Class 3 severe obesity with body mass index (BMI) of 40.0 to 44.9 in adult ([facility] V24, [facility] V28) 12/04/2023 Adrenal adenoma 09/13/2019 Low back pain 09/13/2019 Overview (12/04/2023): Herniated disc L4-5 Migraines 09/13/2019 Vitamin D deficiency 09/13/2019 COVID-19 virus infection 08/31/2019 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/31/2019 Hypertension 05/18/2019 Immunizations Name Administration Dates Next Due Hepatitis B (Uogqmsa-U-Ncbqa , Recombivax HB-Adult) 19yo and older 06/21/2011,01/20/2010,03/24/2009 Influenza trivalent, 0.5mL, preservative free (Fluarix; FluLaval; Fluzone) ages 6mo and older (Afluria) 3 years and older 01/04/2016,02/14/2012 Influenza trivalent, with pr eservative (Fluzone; Afluria) 6mo and older 03/12/2014,02/22/2009 MMR, measles mumps and rubel la Live (Priorix; M-M-R II) 12mo and older 06/21/2011,11/29/2004 Td Tetanus diptheria (Tdvax) 7yo and older 03/25 Tdap Tetanus diptheria acell ular pertussis (Boostrix; Adacel) 7yo and older 01/04/2016 Surgical History Surgery Date Site/Laterality Comments TUBAL LIGATION PROCEDURE: HISTORICAL TUBAL LIGATION WISDOM TOOTH EXTRACTION N/A ANKLE ARTHROPLASTY Left Medical History Medical History Date Comments HTN (hypertension) DX:HTN (hyper tension) Obesity, morbid (more than 1 00 lbs over ideal weight or BMI > 40) (CMS/HCC V24, CMS/HCC V28) DX:Obesity, morbid (more chayo n 100 lbs over ideal weight or BMI > 40) ([facility]) COVID-19 virus infection 08/31/2019 DX:COVI D-19 virus infection 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/31/2019 DX:Fibroa denoma of breast H/O cold sores 09/13/2019 DX:H/O cold sore s Migraines 09/13/2019 DX:Migraines Low back pain 09/13/2019 DX:Low back pain ; COMMENT: Herniated disc L4-5 Adrenal adenoma 09/13/2019 DX:Adrenal adeno ma Vitamin D deficiency 09/13/2019 DX:Vitamin D deficiency Hypothyroidism Family History Medical History Relation Name Comments Lung cancer Aunt Diabetes Father Relation Name Status Comments Aunt Father Alive Mother Alive Social History Tobacco Use Types Packs/Day Years Used Date Smoking Tobacco: Never Smokeless Tobacco: Never Tobacco Cessation:Counseling Given: Not Answered Alcohol Use Standard Drinks/Week Comments No 0 (1 standard drink = 0.6 oz pur e alcohol) Interpersonal Safety Answer Date Record ed Physical Abuse 04/01/2024 Verbal Abuse 04/01/2024 Comments No Sex and Gender Information Value Date Recorded Sex Assigned at Female 04/01/2024 5:50 AM EST Legal Sex Female 9:07 AM EST Gender Identity Female 04/01/2024 5:50 AM EST Sexual Orientation Straight 04/01/2024 5: 50 AM EST Obstetrics History Last Filed Vital Signs Vital Sign Reading Time Taken Comments Blood Pressure 144/79 07/07/2024 4:26 PM EDT Pulse 70 07/07/2024 4:26 PM EDT Temperature 36.6 C (97.8 F) 07/07/2024 4:26 PM EDT Respiratory Rate 18 04/03/2024 3:04 PM EST Oxygen Saturation 98% 04/03/2024 3:04 PM EST Inhaled Oxygen Concentration - - Weight 98 kg (216 lb) 07/07/2024 4:26 PM EDT Height 162.6 cm (5' 4 ) 07/07/2024 4:26 PM EDT Body Mass Index 37.08 07/07/2024 4:26 PM EDT Plan of Treatment Upcoming Encounters Date Type Department Care Team (Late st Contact Info) Description 10/29/2024 8:15 AM EDT Office Visit Bariatric Surgery - [address] [place] [address] Shona Adan MD [address] [place] [phone] Health Maintenance Due Date Last Done Comments Breast Cancer Screening 1969 Pneumococcal Vaccine: 50+ Years (1 of 2 - PCV) 1988 Zoster Vaccines (1 of 2) 1988 Cervical Cancer Screening: Pap Smear 03/12/2017 03/12/2014 COVID-19 Vaccine (3 - Moderna risk series) 07/27/2020 06/29/2020, 06/01/2020 Colorectal Cancer Screening: Colonoscopy 01/21/2022 HIV Screening 01/21/2022 Hepatitis C Screening 01/21/2022 Social Influencers of Health Screening 01/21/2022 Depression Screening 02/19/2024 Influenza Vaccine (#1) 2024 , 01/04/2016, 03/12/2014, Additional history exists Hypertension/CHF/CAD Annual BMP Blood Test 04/03/2025 04/03/2024, 04/02/2024, 03/23/2024, Additional history exists DTaP,Tdap,and Td Vaccines (3 - Td or Tdap) 01/03/2026 01/04/2016, 03/25/2009 Cholesterol Screening (Lipid Panel) 12/12/2028 12/13/2023, 07/29/2023 Hepatitis B Vaccines Completed 06/21/2011, 01/20/2010, 03/24/2009 MMR Vaccines Aged Out 06/21/2011, 11/29/2004 No lo nger eligible based on patient's age to complete this topic HIB Vaccines Aged Out No longer eligi [...] patient's age to complete this topic Meningococcal ACWY Vaccine Aged Out N o longer eligible based on patient's age to complete this topic Meningococcal B Vaccine Aged Out No l onger eligible based on patient's age to complete this topic RSV Immunization Patients Under 20 months Aged Out No longer eligible based on patient's age to complete this topic Varicella Vaccines Aged Out No longer eligible based on patient's age to complete this topic Procedures Procedure Name Priority Date/Time Associated Diagnosis Comments BASIC METABOLIC PANEL Routine 04/03/2024 6:59 AM EST HM PAP SMEAR Routine 03/12/2014 from Last 3 Months or Most Recently Relevant to Health Maintenance Results * (ABNORMAL) Basic metabolic panel (04/03/2024 6:59 AM EST) Sodium 137 133 - 145 mmol/L LAB CHEMISTRY METHOD 04/03/2024 8:05 AM [facility] Potassium 3.9 3.5 - 5.5 mmol/L LAB CHEMISTRY METHOD 04/03/2024 8:05 AM [facility] Chloride 102 96 - 110 mmol/L LAB CHEMISTRY METHOD 04/03/2024 8:05 AM [facility] CO2 32 21 - 32 mmol/L LAB CHEMISTRY METHOD 04/03/2024 8:05 AM [facility] Anion Gap 3 3 - 11 LAB CHEMISTRY METHOD 04/03/2024 8:05 AM [facility] Glucose 103(H) 70 - 100 mg/dL LAB CHEMISTRY METHOD 04/03/2024 8:05 AM [facility] BUN 13 5 - 25 mg/dL LAB CHEMISTRY METHOD 04/03/2024 8:05 AM EST [facility] Creatinine 0.60 0.50 - 1.10 mg/dL LAB CHEMISTRY METHOD 04/03/2024 8:05 AM [facility] eGFR 106 >=60 mL/min/1. 73m2 LAB CHEMISTRY METHOD 04/03/2024 8:05 AM EST [facility] Comment:Calculation based on the Chronic Kidney Disease Epidemiology Collaboration (CKD-EPI) equation refit without adjustment for race. BUN/Creatinine Ratio 21.7 LAB CHEMISTRY METHOD 04/03/2024 8:05 AM [facility] Calcium 8.8 8.5 - 10.5 mg/dL LAB CHEMISTRY METHOD 04/03/2024 8:05 AM [facility] Blood Venous blood specimen / Unknown Venipuncture / Unknown 04/03/2024 6:59 AM EST 04/03/2024 7:34 AM EST Stephanie MENDOZA LAB BLOOD ORDERABLES Fin al Result [facility] [address] [place] [address], * Pap Smear (03/12/2014) Pap smear no interpretation , abstracted Historical Provider HEALTH MAINTENANCE Final Result from Last 3 Months or Most Recently Relevant to Health Maintenance Insurance MEDICAID - [place] Advance Directives * Full Code - Default (Latest Code Status on File) Date Activated Date Inactivated Comments 04/01/2024 6:11 AM 04/03/2024 7:04 PM This is orde r is used when code status has not been discussed with the patient, or code status is otherwise unknown/unconfirmed To update the patient's code status, place a code status order. Do not modify or discontinue any currently active code status orders. Care Teams Wellness Program Administrator Relationship Specialty Start Date End Date Debbie Gentile MD [address] [place] [id number] PCP - General Marketing Outreach Coordinator 08/09/21
--- OUTSIDE RECORDS SUMMARY | 2024-10-16 16:14 | XMS_ITS | Encounter Summary ---
Author Organization [employer] Address [address] [place] [address] 7 [place] [address] Care Team Providers Care Donation Specialist Name Role Phone Debbie Gentile MD Primary Care Provider [phone] Reason for Visit * Reason Onset Date Comments Requesting call back 04/22/2023 Encounter Details Date Type Department Care Team ([facility] st Contact Info) Description 04/22/[address] [facility] MEDICINE [address] [place], [place] [phone] Debbie Gentile MD [address] [place], [place] [phone] Requesting call back Social History Tobacco Use Types Packs/Day Years [...] as of this encounter Miscellaneous Notes * Telephone Encounter - Mariaelena Mejias RN - 04/22/2023 10:32 AM EST TC placed to pt [phone], pt reports she is currently in [place]. Pt reports she fell in [place] and wentto the ED and it was determined pt fractured her L ankle. Pt reports the ED was able to stabilize her L ankle and informed pt she will need surgery within 3 weeks. Pt reports she has the ED note and Xray results. Pt is inquiring what to do when she lands in [place] tomorrow morning, should she come to [facility] or the ED. RN placed pt on hold to discuss w/ provider as referral can be placed however we do not have the records from [place]. PCP advised RN to call [facility] ortho and inquire on process for above situation. RN was informed by [facility] [phone] pt should bring ED note and Xray results to [facility] ortho office when she lands and the provider will review and they will contact pt w/ appt as needed. RN was informed office does need PCP referral however aware records will not be sent w/ referral d/t ED note and Xray being completed in [place] and in pt's possession. RN informed pt [facility] ortho will see pt however when she lands she will need to bring ED note and Xrayresults to [facility] ortho for them to review and schedule pt an appt. Pt verbalized understanding. RN informed pt of [facility] ortho address and phone number incase pt has any issues. Pt to F/U PRN. Please place [facility] Ortho referral (STAT in order for referral team to process today) * Telephone Encounter - Marco A Navarrete - 04/22/2023 9:57 AM EST Tc from pt requesting call back stated she would like to pcp regarding questions about upcoming surgery. Please contact pt at [phone]. documented in this encounter Plan of Treatment Not on file documented as of this encounter Visit Diagnoses Not on filedocumented in this encounter Additional Health Concerns Assessment Noted Time PHQ-9 Depression Total Score: 4 03/18/19 24 3:50 PM EST documented as of this encounter Care Teams Donation Specialist Relationship Specialty Start Date End Date Debbie Gentile MD [address] [place] [phone] PCP - General Family Medicine 11/02/19 documented as of this encounter
--- OUTSIDE RECORDS SUMMARY | 2024-10-16 16:14 | XMS_ITS | Encounter Summary ---
Author Organization [employer] Address [address] [place] [address] [address] [place] [address] Care Team Providers Care Supervisor Histology Name Role Phone Debbie Gentile MD Primary Care Provider [phone] Reason for Visit * Reason Onset Date Comments Error 04/19/2023 Encounter Details Date Type Department Care Team ([facility] st Contact Info) Description 04/19/2023 Telephone [facility] MEDICINE [address] [place], [place] [phone] Debbie Gentile MD [address] [place], [place] [phone] Error Social History Tobacco Use Types Packs/Day Years [...] documented as of this encounter Care Teams Supervisor Histology Relationship Specialty Start Date End Date Debbie Gentile MD [address] [place] [phone] PCP - General Family Medicine 11/02/19 documented as of this encounter
--- OUTSIDE RECORDS SUMMARY | 2024-10-16 16:15 | XMS_ITS | Encounter Summary ---
Author Organization [employer] Address [address] [facility] 7t [place] [address] Care Team Providers Care Medical Psychotherapist Name Role Phone Debbie Gentile MD Primary Care Provider [phone] Encounter Details Date Type Department Care Team (Late st Contact Info) Description 01/09/2023 Orders Only [facility]INE [address] [place], [place] [phone] Debbie Gentile MD [address] [place], [place] [phone] Hypothyroidism, unspecified type (Primary Dx) Social History Tobacco Use Types Packs/Day Years Used Date Smoking Tobacco: Never Smokeless Tobacco: Never Alcohol Use Standard Drinks/Week Comments Not Currently 0 (1 standard drink = 0.6 oz pur e alcohol) Housing Stability Answer Date Recorded What is your housing situation today? I have shaileshradha barajas 12/24/[address] you [...] t he electric, gas, oil or water [employer] threatened to shut off services in your home? No 12/24/2022 Comments No Sex and Gender Information Value Date Recorded Sex Assigned at Female 12/18/2021 10:17 AM EDT Legal Sex Female 10:17 AM EDT Gender Identity Female 12/18/2021 10:17 AM EDT Sexual Orientation Straight 02/03/2024 10 :05 AM EST documented as of this encounter Plan of Treatment Not on file documented as of this encounter Visit Diagnoses Diagnosis Hypothyroidism, unspecified type- Primary documented in this encounter Care Teams Medical Psychotherapist Relationship Specialty Start Date End Date Debbie Gentile MD [address] [place] [address] PCP - General Family Medicine 11/02/19 documented as of this encounter
--- OUTSIDE RECORDS SUMMARY | 2024-10-16 16:15 | XMS_ITS | Encounter Summary ---
Author Organization [employer] Address [address] [place] [address] 7 [place] [address] Care Team Providers Care Air Traffic Control Specialist Center Name Role Phone Debbie Gentile MD Primary Care Provider [phone] Reason for Visit * Reason Comments Med Refill Encounter Details Date Type Department Care Team (Late st Contact Info) Description 09/27/2022 Refill [facility] [address] [place] [address] Debbie Gentile MD [address] [place] [address] Social History Tobacco Use Types Packs/Day Years Used Date Smoking Tobacco: Never Smokeless Tobacco: Never Alcohol Use Standard Drinks/Week Comments Not Currently 0 (1 standard drink = 0.6 oz pur e alcohol) Comments Unknown Sex and Gender Information Value [...] on filedocumented in this encounter Care Teams Air Traffic Control Specialist Center Relationship Specialty Start Date End Date Debbie Gentile MD [address] [place] [address] PCP - General Family Medicine 11/02/19 documented as of this encounter
== END 2024-10-16 16:13 | disposition home or self-care (01) ==
LOC: HO.MAMMO 16:12
PROVIDERS: PCP General Practice; Visit Provider General Practice
DX: Z12.31 Encounter for screening mammogram for malignant neoplasm of breast (principal)
CPT/HCPCS: 77063; 77067

== ENCOUNTER → 2024-10-16 16:16 | Outpatient (BNV) | payer MEDICAID, SELFPAY | PROVIDERS: PCP General Practice; Visit Provider Internal Medicine | DX: Z12.31 Encounter for screening mammogram for malignant neoplasm of breast (principal) | CPT/HCPCS: 77063; 77067 ==